=== PATIENT | female | born 1990 ===

== ENCOUNTER 2020-06-23 09:23 | Outpatient (REF) | payer MEDICAID, SELFPAY | END 2020-06-23 09:24 | disposition home or self-care (01) | LOC: HO.LAB 09:23 | PROVIDERS: PCP Internal Medicine; Visit Provider Internal Medicine | DX: Z13.89 Encounter for screening for other disorder (principal) ==

== ENCOUNTER 2021-03-27 05:45 | Inpatient (IN) | payer MEDICAID, SELFPAY ==
[2021-03-27] VITALS (8 sets, daily range): BP systolic 100–114; BP diastolic 50–72; PULSE 60–81; RESP 14–18; TEMP 36.3–37.1; O2SAT 95–100; BMI 43.4
--- NOTE | ~2021-03-27 | US_ITS ---
EXAMINATION: US ABDOMEN LIMITED CLINICAL INFORMATION: Right upper quadrant pain. COMPARISON: None TECHNIQUE: Real-time imaging of the right upper quadrant abdominal viscera. FINDINGS: PANCREAS: Normal. LIVER: The liver is normal in size. The liver contour is normal. Parenchymal echogenicity is increased. No focal hepatic lesion. There is no intrahepatic biliary duct dilatation seen. GALLBLADDER: The gallbladder is upper normal in size. There are gallstones. Gallbladder wall is normal-appearing. There is no pericholecystic fluid. The cath lab technologist reports the patient is tender over the gallbladder. COMMON BILE DUCT: Normal in caliber measuring 0.5 cm in diameter. RIGHT KIDNEY: Normal. No hydronephrosis. No renal calculi or focal parenchymal lesions. The kidney measures 12.3 cm in maximum dimension. FREE FLUID: None. US/US abdomen limited IMPRESSION: Upper normal-size gallbladder and gallstones. Echogenic liver probably representing fatty infiltration.
[2021-03-27 06:11] LABS: Basophils Percent Auto 0.3 % (0-2); Eosinophils Absolute Auto 0.3 X10*3/uL (0.0-0.4); Eosinophils Percent Auto 2.1 % (0-4); Hematocrit 35.9 % (37-47); Hemoglobin 12.2 g/dl (12.0-16.0); Imm Gran Abs Auto 0.05 X10*3/uL (0.00-0.03); Imm Gran Pct Auto 0.4 % (0.0-0.4); Lymphocytes Percent Auto 14.9 % (20-40); MANUAL DIFF FLAG NO; Mean Corpuscular Hemoglobin 29.3 pg (27.0-33.0); Mean Corpuscular Volume 86.1 fL (80-98); Mean Platelet Volume 10.2 fL (9.4-12.3); Monocytes Absolute Auto 0.7 X10*3/uL (0.1-1.2); Monocytes Percent Auto 4.9 % (2-11); Neutrophils Absolute Auto 10.5 X10*3/uL (2.0-8.3); Neutrophils Percent Auto 77.4 % (45-73); Platelet Count 275 X10*3/uL (160-400); Red Blood Count 4.17 X10*6/uL (4.20-5.50); Red Cell Distribution Width 13.2 % (11.0-16.0); White Blood Count 13.6 X10*3/uL (4.8-10.8)
--- NOTE | 2021-03-27 06:38 | ED_ITS ---
HPI - Abdominal Pain General Chief Complaint: Abdominal Pain Stated Complaint: EPIGASTRIC PAIN/N/V Time Seen by Provider: 03/27/21 06:38 Source: patient Mode of arrival: ambulatory Limitations: no limitations History of Present Illness MD elicited complaint: abdominal pain Pertinent past history: none Onset (ago): hour(s) (last several ) Pain Consistency: constant Location: epigastric and RUQ Severity: severe Quality: stabbing Radiation: none Migration to: no migration Exacerbating factors: eating Relieving factors: nothing Context: history of similar episodes Associated symptoms: nausea Related Data Allergies Allergy/AdvReac Type Severity Reaction Status Date / Time No Known Allergies Allergy Verified 03/27/21 05:57 [No Known Allergies*] Review of Systems Review of Systems Constitutional : No Weight loss, No Fever, No Chills ENT/Mouth : No sore throat, No Rhinorrhea Eyes: No Swelling, No Redness Cardiovascular : No Chest Pain, No SOB, NoEdema Respiratory : No Cough, No Sputum, No Wheezing Gastrointestinal : Positive Nausea, Positive Vomiting, no Diarrhea, positive abdominal Pain, No Hematochezia, No Melena Genitourinary : No Dysuria, No Urinary Frequency, No Hematuria, No Urgency Musculoskeletal : No joint pain, No Myalgias, No Joint Swelling Skin : No Skin Lesions, No rash Neuro : No Weakness, No Numbness, No Dizziness, No Headache Psych : No Anxiety/Panic, No Depression Heme/Lymph: No Bruising, No Lymphadenopathy Endocrine : No Polyuria, No Polydipsia All other systems reviewed and are negative. Physical Exam Vital Signs: Vital Signs: Last Vital Signs Temp 97.9 F 03/27/21 10:03 Pulse 61 03/27/21 10:03 Resp 15 03/27/21 10:03 BP 102/55 L 03/27/21 10:03 Pulse Ox 98 03/27/21 10:03 Body Mass Index 43.4 Appearance: Alert. Oriented X3. No acute distress. Eyes: Pupils equal, round and reactive to light. ENT: Pharynx normal. Neck: Normal inspection. Neck supple. CVS: Normal heart rate and rhythm. Pulses normal. Respiratory: No respiratory distress. Breath sounds normal. Abdomen: Soft and moderate epigastric and RUQ ttp + mackenzie's Skin: Skin warm and dry. Normal skin color. Normal skin turgor. Extremities: No lower extremity edema. No calf ttp Neuro: Oriented X 3. No motor deficit. No sensory deficit. Course Course Course Narrative: stones will repeat LFTs given LFTs will notify and discuss with surgery at this time possible infection suspsected, will add on antibiotics [id number] MDM - Abdominal Pain MDM Narrative Medical decision making narrative: 30 yo female with n /v and upper abdominal pain + mackenzei's at this time will need labs, IVF, IV morphine for pain, US to evaluate GB dispo per results and findings. Differential Diagnosis Differential diagnosis: Likely abdominal pain, gastroenteritis, gastritis, pancreatitis and peptic ulcer disease; Unlikely acute appendicitis, calculus of kidney or diverticulitis Lab Data Result diagrams: 03/27/21 06:05 03/27/21 06:05 Labs: Lab Results 03/27/21 03/27/21 03/27/21 Range/Units 06:05 06:05 07:03 WBC 13.6 H (4.8-10.8) X10*3/uL RBC 4.17 L (4.20-5.50) X10*6/uL Hgb 12.2 (12.0-16.0) g/dl Hct 35.9 L (37-47) % MCV 86.1 (80-98) fL MCH 29.3 (27.0-33.0) pg MCHC 34.0 (31.0-35.0) g/dl RDW 13.2 (11.0-16.0) % Plt Count 275 (160-400) X10*3/uL MPV 10.2 (9.4-12.3) fL Immature Gran % (Auto) 0.4 (0.0-0.4) % Neut % (Auto) 77.4 H (45-73) % Lymph % (Auto) 14.9 L (20-40) % [place] % (Auto) 4.9 (2-11) % Eos % (Auto) 2.1 (0-4) % Baso % (Auto) 0.3 (0-2) % Lymph # (Auto) 2.0 (1.2-4.9) X10*3/uL [place] # (Auto) 0.7 (0.1-1.2) X10*3/uL Eos # (Auto) 0.3 (0.0-0.4) X10*3/uL Baso # (Auto) 0.0 (0.0-0.2) X10*3/uL Abs Immat Gran (auto) 0.05 H (0.00-0.03) X10*3/uL Absolute Neuts (auto) 10.5 H (2.0-8.3) X10*3/uL Absolute Nucleated RBC 0.000 (0.0-0.012) X10*3/uL Nucleated RBC % (auto) 0.0 (0.0-0.2) /100WBC Sodium 137 (135-145) mmol/L Potassium 4.2 (3.3-5.1) mmol/L Chloride 106 (96-108) mmol/L Carbon Dioxide 23 (22-29) mmol/L Anion Gap 12 (12-20) BUN 12 (9-16) mg/dL Creatinine 0.61 (0.5-1.4) mg/dL Estim Creat Clear Calc 158.8 Estimated GFR > 60 Random Glucose 110 (60-115) mg/dL Calcium 9.1 (8.4-10.2) mg/dL Total Bilirubin 1.0 (0.0-1.0) mg/dL Direct Bilirubin 0.5 (0.0-0.5) mg/dL AST 128 H (5-31) U/L ALT 77 H (0-31) U/L Alkaline Phosphatase 95 (39-117) U/L Total Protein 7.1 (6.5-8.0) g/dL Albumin 4.0 (3.5-5.0) g/dL Lipase 39 (8-78) U/L Urine Color YELLOW Urine Appearance HAZY Urine pH 7.5 (5.0-8.0) Ur Specific [place] 1.020 (1.005-1.025) Urine Protein NEG (NEG-TRACE) MG/DL Urine Glucose (UA) NEG (NEG) MG/DL Urine Ketones NEG (NEG) MG/DL Urine Blood TRACE (NEG) Urine Nitrite NEG (NEG) Ur Leukocyte Esterase 1+ H (NEG) Urine RBC 0-2 (0) /HPF Urine WBC 1-4 (0-4) /HPF Ur Squamous Epith Cells 3+ /LPF Amorphous Sediment TRACE /LPF Urine Bacteria TRACE /LPF Urine Test (NEGATIVE) COVID-19 ([facility]) (Negative) COVID-19 Clin Com 03/27/21 03/27/21 03/27/21 Range/Units 07:03 07:03 09:14 WBC (4.8-10.8) X10*3/uL RBC (4.20-5.50) X10*6/uL Hgb (12.0-16.0) g/dl Hct (37-47) % MCV (80-98) fL MCH (27.0-33.0) pg MCHC (31.0-35.0) g/dl RDW (11.0-16.0) % Plt Count (160-400) X10*3/uL MPV (9.4-12.3) fL Immature Gran % (Auto) (0.0-0.4) % Neut % (Auto) (45-73) % Lymph % (Auto) (20-40) % [place] % (Auto) (2-11) % Eos % (Auto) (0-4) % Baso % (Auto) (0-2) % Lymph # (Auto) (1.2-4.9) X10*3/uL [place] # (Auto) (0.1-1.2) X10*3/uL Eos # (Auto) (0.0-0.4) X10*3/uL Baso # (Auto) (0.0-0.2) X10*3/uL Abs Immat Gran (auto) (0.00-0.03) X10*3/uL Absolute Neuts (auto) (2.0-8.3) X10*3/uL Absolute Nucleated RBC (0.0-0.012) X10*3/uL Nucleated RBC % (auto) (0.0-0.2) /100WBC Sodium (135-145) mmol/L Potassium (3.3-5.1) mmol/L Chloride (96-108) mmol/L Carbon Dioxide (22-29) mmol/L Anion Gap (12-20) BUN (9-16) mg/dL Creatinine (0.5-1.4) mg/dL Estim Creat Clear Calc Estimated GFR Random Glucose (60-115) mg/dL Calcium (8.4-10.2) mg/dL Total Bilirubin 1.4 H (0.0-1.0) mg/dL Direct Bilirubin 0.8 H (0.0-0.5) mg/dL AST 208 H (5-31) U/L ALT 137 H (0-31) U/L Alkaline Phosphatase 102 (39-117) U/L Total Protein 6.7 (6.5-8.0) g/dL Albumin 3.9 (3.5-5.0) g/dL Lipase (8-78) U/L Urine Color Urine Appearance Urine pH (5.0-8.0) Ur Specific [place] (1.005-1.025) Urine Protein (NEG-TRACE) MG/DL Urine Glucose (UA) (NEG) MG/DL Urine Ketones (NEG) MG/DL Urine Blood (NEG) Urine Nitrite (NEG) Ur Leukocyte Esterase (NEG) Urine RBC (0) /HPF Urine WBC (0-4) /HPF Ur Squamous Epith Cells /LPF Amorphous Sediment /LPF Urine Bacteria /LPF Urine Test NEGATIVE (NEGATIVE) COVID-19 ([facility]) Negative (Negative) COVID-19 Clin Com See Note Discharge Plan Discharge Clinical Impression: Elevated LFTs, Biliary colic Patient Disposition: Admitted As Inpatient [facility] Past Medical History Attestation statement: The following information was validated with the patient. Medical History (Updated 03/27/21 @ 10:11 by Lulú Kaye DO) Asthma Social History Social History (Updated 03/27/21 @ 07:20 by Lulú Kaye DO) Patient Tobacco Use Status: Never used Tobacco Use of substances other than those prescribed or required for medical reasons: No Advance Directives: No Patient : No
[2021-03-27 06:45] LABS: Alanine Aminotransferase 77 U/L (0-31); Alkaline Phosphatase 95 U/L (39-117); Anion Gap 12 (12-20); Aspartate Amino Transferase 128 U/L (5-31); Bilirubin Direct 0.5 mg/dL (0.0-0.5); Blood Urea Nitrogen 12 mg/dL (9-16); Calcium 9.1 mg/dL (8.4-10.2); Carbon Dioxide 23 mmol/L (22-29); Chloride 106 mmol/L (96-108); Creatinine Clr Calc Pharmacy 158.8; Estimated Glomerular Filt Rate > 60; Glucose Random 110 mg/dL (60-115); Lipase 39 U/L (8-78); Potassium 4.2 mmol/L (3.3-5.1); Sodium 137 mmol/L (135-145); Total Protein 7.1 g/dL (6.5-8.0)
[2021-03-27] MEDS: Ketorolac Tromethamine 15 MG/ML VIAL IVPUSH (07:05)
[2021-03-27] MEDS: Morphine Sulfate 4 MG/ML CARTRIDGE IVPUSH (07:05)
[2021-03-27] MEDS: 0.9 % Sodium Chloride 1,000 ML 999 ML IVCONT (07:05)
[2021-03-27] MEDS: ondansetron HCL 4 MG/2 ML VIAL IVPUSH ×2 (07:05→17:58)
[2021-03-27 07:10] LABS: Appearance Urine HAZY; Color Urine YELLOW; Glucose Urine UA NEG (NEG); Leukocyte Esterase Urine 1+ (NEG); Nitrite Urine NEG (NEG); PH 7.5 (5.0-8.0); UACC Culture Trigger YES; Urine Blood TRACE (NEG); Urine Ketones NEG (NEG); Urine Protein NEG (NEG-TRACE)
[2021-03-27 07:12] LABS: UPreg QC Valid YES; Urine Pregnancy NEGATIVE (NEGATIVE)
[2021-03-27 07:20] LABS: Amorphous Sediment Urine TRACE /LPF; Bacteria Urine TRACE /LPF; RBC Urine 0-2 /HPF (0); Squamous Epithelial Cell Urine 3+ /LPF
[2021-03-27 07:22] LABS: COVID-19 Test Negative (Negative)
[2021-03-27 10:08] LABS: Alanine Aminotransferase 137 U/L (0-31); Albumin Level 3.9 g/dL (3.5-5.0); Alkaline Phosphatase 102 U/L (39-117); Aspartate Amino Transferase 208 U/L (5-31); Bilirubin Direct 0.8 mg/dL (0.0-0.5); Bilirubin Total 1.4 mg/dL (0.0-1.0); Total Protein 6.7 g/dL (6.5-8.0)
--- NOTE | 2021-03-27 10:32 | P.HPGS_ITS ---
History of Present Illness History of Present Illness Date of Service: 03/27/21 Chief complaint: EPIGASTRIC PAIN/N/V Narrative: Sierra Boyce is a 30 year old female presenting with complaints of abdominal pain in the right upper quadrant beginning at 00:30 today. She reports a previous episode approximately 2 weeks ago occurring in the epigastrium radiating to the right upper quadrant. The initial episode occurred after eating [employer]. She initially thought it was due to her GERD however symptoms today were much worse resulting in nausea and vomiting. She denies a previous history of similar pains prior to the last 2 weeks. She denies fever, chills, diarrhea, or constipation. She presented to the emergency department was found to have elevated liver function tests. Ultrasound of the abdomen confirmed multiple gallstones within the gallbladder without wall thickening or pericholecystic fluid. She is admitted to the surgical service for management of acute cholecystitis due to cholelithiasis. Review of Systems Review of Systems: Yes all other systems are reviewed and are negative Constitutional: Constitutional: Reports anorexia, Denies chills, Denies fever(s) and Denies night sweats Cardiovascular: Cardiovascular: Denies chest pain, Reports Epigastric Pain, Denies rapid heart rate, Denies irregular heart rhythm and Denies dyspnea Respiratory: Respiratory: Denies change in phlegm color, Denies chest congestion, Denies cough and Denies dyspnea Gastrointestinal: Gastrointestinal: Reports as per HPI, Reports abdominal pain, Denies diarrhea, Reports nausea and Reports vomiting Genitourinary: Genitourinary: Reports no additional female genitourinary complaints PMFSH Past Medical History Medical History Asthma Social History Social History Patient Tobacco Use Status: Never used Tobacco Use of substances other than those prescribed or required for medical reasons: No Advance Directives: No Patient : No Meds Allergies Allergy/AdvReac Type Severity Reaction Status Date / Time No Known Allergies Allergy Verified 03/27/21 05:57 [No Known Allergies*] Active Medications: Current Medications Generic Name Dose Route Start Last Admin Trade Name Freq PRN Reason Stop Dose Admin Piperacillin Sod/Tazobactam 50 mls @ 100 mls/hr 03/27/21 10:14 Sod 3.375 gm/ Sodium Chloride IV 03/27/21 10:43 ONCE ONE Piperacillin Sod/Tazobactam 50 mls @ 100 mls/hr 03/27/21 10:30 Sod 3.375 gm/ Sodium Chloride IV Q6H [facility] Pharmacy Consult 1 each 03/27/21 10:15 Consult Rx Perform Med Rec MISCELLANE ONCE PRN Consult order Physical Exam Vital Signs: Vital Signs: Last Vital Signs Temp 97.9 F 03/27/21 10:03 Pulse 61 03/27/21 10:03 Resp 15 03/27/21 10:03 BP 102/55 L 03/27/21 10:03 Pulse Ox 98 03/27/21 10:03 Body Mass Index 43.4 Const: General: cooperative and well developed Nutritional Appearance: well nourished Orientation/consciousness: patient oriented x3 Limitations: no limitations HENMT: Head: Yes normocephalic and Yes atraumatic Ears: hearing grossly normal bilaterally Resp: Effort & Inspection: normal respiratory effort and no audible wheezes Auscultation: clear to auscultation bilaterally GI: Inspection: Yes normal to inspection Palpation (GI): Soft to palpation and Tenderness to palpation present (GI) in the RUQ and Kimble's sign positive Percussion: Yes normal to percussion Auscultation: normal bowel sounds Skin: General skin exam: no rashes or lesions noted Neuro: General: patient oriented x3 Extrem: General: Yes normal to inspection and Yes no clubbing, cyanosis or edema Results Results Labs: Short CBC 03/27/21 Range/Units 06:05 WBC 13.6 H (4.8-10.8) X10*3/uL Hgb 12.2 (12.0-16.0) g/dl Hct 35.9 L (37-47) % Plt Count 275 (160-400) X10*3/uL BMP 03/27/21 06:05 Sodium 137 Potassium 4.2 Chloride 106 Carbon Dioxide 23 BUN 12 Creatinine 0.61 Calcium 9.1 Liver Function 03/27/21 03/27/21 Range/Units 06:05 09:14 Total Bilirubin 1.0 1.4 H (0.0-1.0) mg/dL Direct Bilirubin 0.5 0.8 H (0.0-0.5) mg/dL AST 128 H 208 H (5-31) U/L ALT 77 H 137 H (0-31) U/L Alkaline Phosphatase 95 102 (39-117) U/L Albumin 4.0 3.9 (3.5-5.0) g/dL Urine 03/27/21 03/27/21 Range/Units 07:03 07:03 Urine Color YELLOW Urine Appearance HAZY Urine pH 7.5 (5.0-8.0) Ur Specific [place] 1.020 (1.005-1.025) Urine Protein NEG (NEG-TRACE) MG/DL Urine Glucose (UA) NEG (NEG) MG/DL Urine Test NEGATIVE (NEGATIVE) Assessment and Plan (1) Biliary colic: Status: Acute 30-year-old female patient presenting with complaints of abdominal pain in the right upper quadrant found to have gallstones in the gallbladder with findings suggestive of acute cholecystitis or biliary colic. Patient also has an elevated WBC and elevated liver function test. I recommended admission with trending of the liver function tests and possible laparoscopic cholecystectomy tomorrow. I reviewed the procedure, risks, and alternatives, she consents to the surgery. Quality Stroke Does the patient have a stroke diagnosis?: No VTE Prior VTE?: No VTE Risk Level:: Surgical - moderate VTE Device Contraindication: N/A - Device Ordered VTE Drug Contraindication: Treatment Not Indicated Procedures Date of Service Date of Service: 03/27/21
[2021-03-27] MEDS: Piperacillin Sodium/Tazobactam 3.375 GM in 0.9 % Sodium Chloride 50 ML IV ×3 (10:54→22:38)
[2021-03-27 11:10] LABS: Lactic Acid 1.8 mmol/L (0.5-2.0)
--- NOTE | 2021-03-27 11:55 | PHA.MEDREC ---
Pharmacy Consult ? Medication Reconciliation Pharmacy has completed the medication reconciliation.
[2021-03-27] MEDS: Dextrose 5 % and Lactated Ring 1,000 ML 125 ML IVCONT ×2 (13:53→22:43)
[2021-03-28] VITALS (21 sets, daily range): BP systolic 97–136; BP diastolic 45–76; PULSE 65–91; RESP 14–20; TEMP 36.1–37.2; O2SAT 93–100
[2021-03-28] MEDS: Piperacillin Sodium/Tazobactam 3.375 GM in 0.9 % Sodium Chloride 50 ML IV ×3 (04:19→23:28)
[2021-03-28 06:42] LABS: MANUAL DIFF FLAG NO
[2021-03-28 06:49] LABS: Basophils Percent Auto 0.3 % (0-2); Eosinophils Absolute Auto 0.5 X10*3/uL (0.0-0.4); Eosinophils Percent Auto 5.1 % (0-4); Hematocrit 34.2 % (37-47); Imm Gran Abs Auto 0.03 X10*3/uL (0.00-0.03); Imm Gran Pct Auto 0.3 % (0.0-0.4); Lymphocytes Absolute Auto 2.1 X10*3/uL (1.2-4.9); Lymphocytes Percent Auto 22.2 % (20-40); Mean Corpuscular HGB Conc 32.2 g/dl (31.0-35.0); Mean Corpuscular Hemoglobin 28.5 pg (27.0-33.0); Mean Corpuscular Volume 88.6 fL (80-98); Monocytes Absolute Auto 0.7 X10*3/uL (0.1-1.2); Monocytes Percent Auto 7.1 % (2-11); Neutrophils Absolute Auto 6.2 X10*3/uL (2.0-8.3); Platelet Count 240 X10*3/uL (160-400); Red Blood Count 3.86 X10*6/uL (4.20-5.50); Red Cell Distribution Width 13.5 % (11.0-16.0); White Blood Count 9.5 X10*3/uL (4.8-10.8)
[2021-03-28 07:21] LABS: Alanine Aminotransferase 125 U/L (0-31); Albumin Level 3.5 g/dL (3.5-5.0); Alkaline Phosphatase 95 U/L (39-117); Anion Gap 10 (12-20); Aspartate Amino Transferase 66 U/L (5-31); Bilirubin Direct 0.4 mg/dL (0.0-0.5); Bilirubin Total 0.9 mg/dL (0.0-1.0); Blood Urea Nitrogen 9 mg/dL (9-16); Calcium 8.2 mg/dL (8.4-10.2); Carbon Dioxide 27 mmol/L (22-29); Chloride 109 mmol/L (96-108); Estimated Glomerular Filt Rate > 60; Glucose Random 113 mg/dL (60-115); Potassium 3.7 mmol/L (3.3-5.1); Sodium 142 mmol/L (135-145); Total Protein 5.9 g/dL (6.5-8.0)
--- NOTE | 2021-03-28 08:08 | P.PNGS_ITS ---
Subjective Subjective Date of Service: 03/28/21 Interval history: Patient feels improved today with decreased abdominal pain. Denies nausea or vomiting. Physical Exam Vital Signs: Vital Signs: Last Vital Signs Temp 97.9 F 03/28/21 07:39 Pulse 83 03/28/21 07:39 Resp 17 03/28/21 07:39 BP 117/70 03/28/21 07:39 Pulse Ox 97 03/28/21 07:39 Body Mass Index 43.4 Const: General: cooperative, no acute distress and well developed Nutritional Appearance: well nourished Orientation/consciousness: patient oriented x3 Limitations: no limitations HENMT: Head: Yes normocephalic and Yes atraumatic Resp: Effort & Inspection: normal respiratory effort Auscultation: clear to auscultation bilaterally Cardio: Jugular venous distension: no JVD Rate: regular rate Rhythm: regular rhythm GI: Palpation (GI): Soft to palpation, nontender, no guarding, not rigid and No hepatosplenomegaly present Skin: Other: Warm, dry, no rash Neuro: General: patient oriented x3 Extrem: General: Yes no clubbing, cyanosis or edema Procedures Date of Service Date of Service: 03/28/21 Progress Note: A&P Assessment and plan (1) Cholecystitis, acute with cholelithiasis: Status: Acute Assessment and Plan: 30-year-old female presenting with complaints of abdominal pain right upper quadrant found to have gallstones with tenderness over the gallbladder by ultrasound. Examination today is improved with decreased abdominal pain. Her laboratories are improved as well. We discussed laparoscopic or possible open cholecystectomy including the risks, alternatives, and benefits. She gives her consent to a laparoscopic or possible open cholecystectomy. She has been added onto the operative schedule for later today. Preoperative antibiotics have been ordered. Fall Risk Details Current Medications: Current Medications Generic Name Dose Route Start Last Admin Trade Name Freq PRN Reason Stop Dose Admin Acetaminophen 650 mg 03/27/21 13:32 Acetaminophen 325 Mg Tablet PO Q6H PRN Pain, Mild (Pain Scale 1-3) Docusate Sodium 100 mg 03/27/21 13:32 Docusate Sodium 100 Mg Capsule PO DAILY PRN Constipation Famotidine 20 mg 03/28/21 09:00 Famotidine/Pf 20 Mg/2 Ml Vial IVPUSH DAILY EFFIE Hydromorphone HCl 0.5 mg 03/27/21 13:32 Hydromorphone Hcl 0.5 Mg/0.5 Ml Syringe IVPUSH Q3H PRN Pain, Severe (Pain Scale 7-10) Protocol Piperacillin Sod/Tazobactam 50 mls @ 100 mls/hr 03/27/21 10:30 03/28/21 04:58 Sod 3.375 gm/ Sodium Chloride IV Infused Q6H EFFIE Infusion Dextrose/Lactated Ringer's 1,000 mls @ 125 mls/hr 03/27/21 13:32 03/28/21 06:42 D5lr IVCONT Not Given .Q8H EFFIE Ondansetron HCl 4 mg 03/27/21 13:32 03/27/21 17:58 Ondansetron Hcl 4 Mg/2 Ml Vial IVPUSH 4 mg Q8H PRN Administration Nausea and Vomiting Oxycodone HCl 5 mg 03/27/21 13:32 Oxycodone Hcl Immed Release 5 Mg Tablet PO Q6H PRN Pain, Moderate (Pain Scale 4-6 Pharmacy Consult 1 each 03/27/21 10:15 Consult Rx Perform Med Rec MISCELLANE ONCE PRN Consult order Sodium Chloride 3 ml 03/27/21 16:00 03/28/21 00:17 0.9 % Sodium Chloride Flush 3 Ml Syringe IVFLUSH Not Given QSHIFT EFFIE Zolpidem Tartrate 5 mg 03/27/21 13:32 Zolpidem Tartrate 5 Mg Tablet PO BEDTIME PRN Insomnia Time Spent With Patient Time: Total time spent is greater than 50% in coordination of care (as docum ented) at patient's floor/unit and/or counseling patient: Time with patient: 15 - 24 minutes Quality Stroke Does the patient have a stroke diagnosis?: No VTE Prior VTE?: No VTE Risk Level:: Surgical - moderate VTE Device Contraindication: N/A - Device Ordered VTE Drug Contraindication: Treatment Not Indicated
[2021-03-28] MEDS: Dextrose 5 % and Lactated Ring 1,000 ML 125 ML IVCONT ×2 (08:22→18:10)
[2021-03-28] MEDS: Famotidine/PF 20 MG/2 ML VIAL IVPUSH (10:23)
--- NOTE | 2021-03-28 11:33 | PC.NURSE ---
Patient taken to short stay.
--- NOTE | 2021-03-28 11:36 | MHC.SHP ---
Pre-Procedural Eval Section A Date of Service: 03/28/21 The patient is an INPATIENT: Yes Section B Chief Complaint: Acute cholecystitis cholelithiasis Allergies: Allergies Allergy/AdvReac Type Severity Reaction Status Date / Time No Known Allergies Allergy Verified 03/27/21 05:57 [No Known Allergies*] Plan Diagnosis/Plan: Unchanged I have reviewed the history and physical and performed a pertinent physical examination on my patient. No changes have occurred unless specified.
--- NOTE | 2021-03-28 13:05 | P.CONAN_ITS ---
FORMERLY [facility], 1928–1983 Active Problems Active Problems: All Active Problems (Updated 03/28/21 @ 08:10 by Kirk cast MD) Cholecystitis, acute with cholelithiasis (Acute) Elevated LFTs (Acute) Biliary colic (Acute) Past Medical History Medical History Asthma Family History Family history of problems with anesthesia: No Surgical History History of Problems with Anesthesia: No Social History Social History Household Members: Family Housing: Apartment Do you presently have visiting nurse or other home services: No Patient Tobacco Use Status: Never used Tobacco Use of substances other than those prescribed or required for medical reasons: Yes Substance Use Type: Marijuana Currently Displaying Signs/Symptoms of Drug Intoxication Withdrawal: No Have you been hit, kicked, punched, or otherwise hurt by someone within the past year? If so, by whom?: No Do you feel safe in your current relationship?: Yes Is there a partner from a previous relationship who is making you feel unsafe now?: No Are you made to feel afraid or neglected: No Are you DNR?: No Advance Directives: No Do you have thoughts of harming others: None Do you have a plan to hurt others: No Plan Recently lost weight without trying: No Nutrition Risks: No Nutritional Risk Patient : No : No Poor oral hygiene: No Meds Allergies Allergy/AdvReac Type Severity Reaction Status Date / Time No Known Allergies Allergy Verified 03/27/21 05:57 [No Known Allergies*] Active Medications: Current Medications Generic Name Dose Route Start Last Admin Trade Name Goodq PRN Reason Stop Dose Admin Acetaminophen 650 mg 03/27/21 13:32 Acetaminophen 325 Mg Tablet PO Q6H PRN Pain, Mild (Pain Scale 1-3) Docusate Sodium 100 mg 03/27/21 13:32 Docusate Sodium 100 Mg Capsule PO DAILY PRN Constipation Famotidine 20 mg 03/28/21 09:00 03/28/21 10:23 Famotidine/Pf 20 Mg/2 Ml Vial IVPUSH 20 mg DAILY EFFIE Administration Hydromorphone HCl 0.5 mg 03/27/21 13:32 Hydromorphone Hcl 0.5 Mg/0.5 Ml Syringe IVPUSH Q3H PRN Pain, Severe (Pain Scale 7-10) Protocol Piperacillin Sod/Tazobactam 50 mls @ 100 mls/hr 03/27/21 10:30 03/28/21 04:58 Sod 3.375 gm/ Sodium Chloride IV Infused Q6H EFFIE Infusion Dextrose/Lactated Ringer's 1,000 mls @ 125 mls/hr 03/27/21 13:32 03/28/21 08:22 D5lr IVCONT 125 mls/hr .Q8H EFFIE Administration Ondansetron HCl 4 mg 03/27/21 13:32 03/27/21 17:58 Ondansetron Hcl 4 Mg/2 Ml Vial IVPUSH 4 mg Q8H PRN Administration Nausea and Vomiting Oxycodone HCl 5 mg 03/27/21 13:32 Oxycodone Hcl Immed Release 5 Mg Tablet PO Q6H PRN Pain, Moderate (Pain Scale 4-6 Pharmacy Consult 1 each 03/27/21 10:15 Consult Rx Perform Med Rec MISCELLANE ONCE PRN Consult order Sodium Chloride 3 ml 03/27/21 16:00 03/28/21 08:21 0.9 % Sodium Chloride Flush 3 Ml Syringe IVFLUSH Not Given QSHIFT EFFIE Zolpidem Tartrate 5 mg 03/27/21 13:32 Zolpidem Tartrate 5 Mg Tablet PO BEDTIME PRN Insomnia Home Medications Medication Instructions Recorded Confirmed Last Taken Type albuterol sulfate 90 mcg/actuation 2 puff PO Q4-6H PRN 03/27/21 03/27/21 Unknown History aerosol inhaler (ProAir HFA) calcium carbonate 500 mg calcium 500 mg PO TID PRN 03/27/21 03/27/21 03/26/21 History (1,250 mg) chewable tablet famotidine 20 mg tablet 1 tab PO BID 03/27/21 03/27/21 03/26/21 History fluticasone propionate 110 1 puff INHALATION BID PRN 03/27/21 03/27/21 03/26/21 History mcg/actuation HFA aerosol inhaler (Flovent HFA) melatonin 10 mg tablet 10 mg PO BEDTIME PRN 03/27/21 03/27/21 03/26/21 History Exam Exam Date and Time: March 28, 2021 1305 Height,Weight and Vital Signs: Height 5 ft 3 in Weight 111.316 kg Last Vital Signs Temp 97.1 F 03/28/21 11:44 Pulse 74 03/28/21 11:44 Resp 20 03/28/21 11:44 BP 101/65 03/28/21 11:44 Pulse Ox 98 03/28/21 11:44 Pertinent Lab Results Pertinent Lab Results: Laboratory Tests 03/27/21 03/27/21 03/27/21 06:05 06:05 07:03 WBC 13.6 H RBC 4.17 L Hgb 12.2 Hct 35.9 L MCV 86.1 MCH 29.3 MCHC 34.0 RDW 13.2 Plt Count 275 MPV 10.2 Immature Gran % (Auto) 0.4 Neut % (Auto) 77.4 H Lymph % (Auto) 14.9 L [place] % (Auto) 4.9 Eos % (Auto) 2.1 Baso % (Auto) 0.3 Lymph # (Auto) 2.0 [place] # (Auto) 0.7 Eos # (Auto) 0.3 Baso # (Auto) 0.0 Abs Immat Gran (auto) 0.05 H Absolute Neuts (auto) 10.5 H Absolute Nucleated RBC 0.000 Nucleated RBC % (auto) 0.0 Sodium 137 Potassium 4.2 Chloride 106 Carbon Dioxide 23 Anion Gap 12 BUN 12 Creatinine 0.61 Estim Creat Clear Calc 158.8 Estimated GFR > 60 Random Glucose 110 Lactic Acid Calcium 9.1 Total Bilirubin 1.0 Direct Bilirubin 0.5 AST 128 H ALT 77 H Alkaline Phosphatase 95 Total Protein 7.1 Albumin 4.0 Lipase 39 Urine Color YELLOW Urine Appearance HAZY Urine pH 7.5 Ur Specific [place] 1.020 Urine Protein NEG Urine Glucose (UA) NEG Urine Ketones NEG Urine Blood TRACE Urine Nitrite NEG Ur Leukocyte Esterase 1+ H Urine RBC 0-2 Urine WBC 1-4 Ur Squamous Epith Cells 3+ Amorphous Sediment TRACE Urine Bacteria TRACE Urine Test COVID-19 ([facility]) COVID-19 Clin Com 03/27/21 03/27/21 03/27/21 07:03 07:03 09:14 WBC RBC Hgb Hct MCV MCH MCHC RDW Plt Count MPV Immature Gran % (Auto) Neut % (Auto) Lymph % (Auto) [place] % (Auto) Eos % (Auto) Baso % (Auto) Lymph # (Auto) [place] # (Auto) Eos # (Auto) Baso # (Auto) Abs Immat Gran (auto) Absolute Neuts (auto) Absolute Nucleated RBC Nucleated RBC % (auto) Sodium Potassium Chloride Carbon Dioxide Anion Gap BUN Creatinine Estim Creat Clear Calc Estimated GFR Random Glucose Lactic Acid Calcium Total Bilirubin 1.4 H Direct Bilirubin 0.8 H AST 208 H ALT 137 H Alkaline Phosphatase 102 Total Protein 6.7 Albumin 3.9 Lipase Urine Color Urine Appearance Urine pH Ur Specific [place] Urine Protein Urine Glucose (UA) Urine Ketones Urine Blood Urine Nitrite Ur Leukocyte Esterase Urine RBC Urine WBC Ur Squamous Epith Cells Amorphous Sediment Urine Bacteria Urine Test NEGATIVE COVID-19 ([facility]) Negative COVID-19 Clin Com See Note 03/27/21 03/28/21 03/28/21 10:39 06:31 06:31 WBC 9.5 RBC 3.86 L Hgb 11.0 L Hct 34.2 L MCV 88.6 MCH 28.5 MCHC 32.2 RDW 13.5 Plt Count 240 MPV 10.0 Immature Gran % (Auto) 0.3 Neut % (Auto) 65.0 Lymph % (Auto) 22.2 [place] % (Auto) 7.1 Eos % (Auto) 5.1 H Baso % (Auto) 0.3 Lymph # (Auto) 2.1 [place] # (Auto) 0.7 Eos # (Auto) 0.5 H Baso # (Auto) 0.0 Abs Immat Gran (auto) 0.03 Absolute Neuts (auto) 6.2 Absolute Nucleated RBC 0.000 Nucleated RBC % (auto) 0.0 Sodium 142 Potassium 3.7 Chloride 109 H Carbon Dioxide 27 Anion Gap 10 L BUN 9 Creatinine 0.65 Estim Creat Clear Calc 149.0 Estimated GFR > 60 Random Glucose 113 Lactic Acid 1.8 Calcium 8.2 L D Total Bilirubin 0.9 Direct Bilirubin 0.4 AST 66 H ALT 125 H Alkaline Phosphatase 95 Total Protein 5.9 L Albumin 3.5 Lipase Urine Color Urine Appearance Urine pH Ur Specific [place] Urine Protein Urine Glucose (UA) Urine Ketones Urine Blood Urine Nitrite Ur Leukocyte Esterase Urine RBC Urine WBC Ur Squamous Epith Cells Amorphous Sediment Urine Bacteria Urine Test COVID-19 ([facility]) COVID-19 Clin Com Airway Mallampati Class: II TM Dist: >3cm Neck ROM: Full Loose/Missing/Broken Teeth: Yes and Upper Assessment and Plan Assessment Anesthesia Assessment: Anesthesia Plan Discussed and Chart Reviewed Final Anesthetic Review Family History of Problems with Anesthesia: No History of Problems with Anesthesia: No NPO: Yes ASA Class: III Final Preanesthetic Review: No Changes in Pt Med Stat, Meds/Allgs Chart Reviewed, Consent Obtained/Reviewed and Anes Risks/Benef Reviewed Patient Risk: Intermediate Procedure Risk: Intermediate Assessment/Block/Sedation in SS: Assess/Block/Sedation-SS Anesthetic Plan Anesthetic Plan: GA Disposition: Standard PACU
--- NOTE | 2021-03-28 14:57 | MHC.CM.PN ---
PT OUR OF ROOM FOR PROCEDURE. CM MET WITH PTS WHO WAS IN ROOM. PT LIVES AT HOME WITH HER S/O AND IS INDEPENDENT WITH ALL ADLS PT DOES NOT USE DME OR HOME SERVICES PT GOES TO [facility] FOR PRIMARY CARE PT DOES NOT HAVE A HCP, INFORMED THAT CM COULD ASSIST. CURRENT DC PLAN IS HOME WITH NO SERVICES FAMILY WILL TRANSPORT
--- NOTE | 2021-03-28 15:01 | P.OP_ITS ---
Operative Note Operative Note Date of Service: 03/28/21 Narrative: Preoperative diagnosis: Cholecystitis due to cholelithiasis, liver edge bleeding Postoperative diagnosis: Same Procedure: Laparoscopic cholecystectomy converted to open laparotomy to control liver edge bleeding Surgeon: Kirk Farfan MD Radio Intelligence Operator: NOHEMI Rodriguez Anesthesia: General endotracheal Indications for procedure: 30-year-old female patient presenting with complaints of abdominal pain in the right upper quadrant found on ultrasound to have an enlarged gallbladder with gallstones and tenderness with palpation of the gallbladder. Patient also had elevated liver function test which improved overnight. She presents today for laparoscopic or possible open cholecystectomy. Operative findings: Patient was found to have a moderately inflamed intrahepatic gallbladder. Upon dissection of the gallbladder at the level of the fundus, an area of bleeding was identified once the gallbladder was removed. Pulsatile flow was noted from this vessel suggestive of an intrahepatic artery. Attempt at clipping were unsuccessful therefore an open laparotomy was required to control liver bleeding. This was controlled using a U-stitch. Specimen: Gallbladder Estimated blood loss: 1000 mL Complications: Bleeding from liver edge as noted above Procedure details: Patient was brought to the OR and placed in a supine position. After administering general anesthesia the patient's abdomen was prepped with ChloraPrep and draped in a sterile fashion. Local anesthesia consisting of 0.5% Sensorcaine plain was infiltrated in a periumbilical region. A 5 mm incision was made above the umbilicus in a transverse fashion. The Veress needle was then inserted while elevating abdominal cavity with towel clips. After positive drop test the abdomen was insufflated to a pressure of 15 mm of mercury. The Veress needle was then removed and a 5 mm trocar inserted. The camera was inserted in the abdomen explored. A 12 mm trocar was then placed in the epigastrium and two 5 mm trocars placed in the right upper quadrant. The patient was placed in reverse Trendelenburg positioning and rotated to the left. The gallbladder was grasped with the fundus and retracted cephalad. The infundibulum was then grasped and retracted away from the liver bed. The Dolphin dissector was then used to dissect the peritoneum off the infundibulum to reveal the junction with the cystic duct. Cystic artery was noted slightly medial and posterior to the cystic duct. After obtaining a critical view the cystic duct was doubly clipped and divided. The cystic artery was then doubly clipped and divided. The gallbladder was then dissected off the liver bed using electrocautery with an L hook. When the gallbladder is completely dissected off the liver bed was placed in an Endo-Catch bag and brought out through the epigastric incision. The gallbladder was sent to pathology for further examination. The abdomen was then re-examined. The liver bed was irrigated and area of bleeding noted from the liver bed in the region of the fundus. Electrocautery was initially used to attempt to control the bleeding however this was not successful. Hemoclips were also attempted but again could not control the bleeding. As noted above the bleeding was noted to be pulsatile suggestive of a intrahepatic artery at the surface. The decision was made to convert to an open procedure via a subcostal incision. A Eric incision was made with a scalpel carried down through subcutaneous tissue with electrocautery. The anterior rectus sheath was then opened with electrocautery and the rectus muscle and oblique muscles divided using electrocautery. Peritoneum was then entered. Liver was then brought into view and packed immediately with a lap pad. This was held for several minutes but continue bleeding was noted from the liver bed. The decision was then made to place a liver stitch in the U fashion through and through the liver bed. This was done using a 0 Polysorb suture and tied off on the upper surface of the liver. Hemostasis was achieved using the suture. Wounds were then packed and observed for approximately 30 minutes. The liver bed was also packed with Surgicel. No further bleeding could be identified at this time. A large flat Damien-Gillespie drain was then placed and brought out through the lateral trocar site. This was secured to the skin using a nylon suture. The tube was connected to bulb suction. The abdomen was again examined and good hemostasis assured. No bile leak could be identified as well. Peritoneum was then closed using a running 0 Polysorb suture. Posterior and anterior rectus sheaths were then closed using 0 Polysorb sutures in a running fashion. Gabbie's fascia and dermis reapproximated using interrupted 3-0 Polysorb sutures. Skin was then closed in all incisions using skin arely. The patient was awoken in the OR and transported to PACU in stable condition. Sponge instrument and needle counts reported as correct.
[2021-03-28] MEDS: HYDROmorphone HCl 0.5 MG/0.5 ML SYRINGE IVPUSH ×2 (15:14→21:08)
[2021-03-28] MEDS: fentaNYL citrate/PF 100 MCG/2 ML VIAL 50 MCG IVPUSH ×2 (15:35→15:45)
[2021-03-28] MEDS: oxyCODONE HCl Immed Release 5 MG TABLET PO ×3 (15:35→23:29)
[2021-03-29] VITALS (11 sets, daily range): BP systolic 96–116; BP diastolic 58–65; PULSE 70–80; RESP 16–18; TEMP 35.9–36.9; O2SAT 95–97
[2021-03-29] MEDS: HYDROmorphone HCl 0.5 MG/0.5 ML SYRINGE IVPUSH ×4 (01:36→10:05)
[2021-03-29] MEDS: Dextrose 5 % and Lactated Ring 1,000 ML 125 ML IVCONT ×3 (02:31→19:47)
[2021-03-29] MEDS: Piperacillin Sodium/Tazobactam 3.375 GM in 0.9 % Sodium Chloride 50 ML IV ×4 (03:42→22:58)
[2021-03-29 06:21] LABS: MANUAL DIFF FLAG NO
[2021-03-29 06:24] LABS: Basophils Percent Auto 0.1 % (0-2); Hematocrit 30.2 % (37-47); Hemoglobin 9.8 g/dl (12.0-16.0); Imm Gran Abs Auto 0.05 X10*3/uL (0.00-0.03); Imm Gran Pct Auto 0.3 % (0.0-0.4); Lymphocytes Absolute Auto 2.2 X10*3/uL (1.2-4.9); Lymphocytes Percent Auto 15.6 % (20-40); Mean Corpuscular HGB Conc 32.5 g/dl (31.0-35.0); Mean Corpuscular Hemoglobin 28.8 pg (27.0-33.0); Mean Corpuscular Volume 88.8 fL (80-98); Mean Platelet Volume 10.4 fL (9.4-12.3); Monocytes Percent Auto 6.7 % (2-11); Neutrophils Absolute Auto 11.1 X10*3/uL (2.0-8.3); Neutrophils Percent Auto 77.3 % (45-73); Platelet Count 240 X10*3/uL (160-400); Red Cell Distribution Width 13.3 % (11.0-16.0); White Blood Count 14.4 X10*3/uL (4.8-10.8)
[2021-03-29 06:51] LABS: Anion Gap 9 (12-20); Blood Urea Nitrogen 5 mg/dL (9-16); Calcium 7.9 mg/dL (8.4-10.2); Carbon Dioxide 26 mmol/L (22-29); Chloride 107 mmol/L (96-108); Creatinine Clr Calc Pharmacy 161.4; Estimated Glomerular Filt Rate > 60; Glucose Random 130 mg/dL (60-115); Sodium 138 mmol/L (135-145)
--- NOTE | 2021-03-29 06:51 | HO.POSTANES ---
Post Anesthesia Evaluation Post Anesthesia Evaluation Vital Signs: Vital Signs Temp Pulse Resp BP Pulse Ox 03/29/21 04:00 96.9 F 76 16 96/64 95 03/29/21 01:36 16 03/29/21 01:35 80 16 116/63 03/29/21 01:24 104/58 L 03/29/21 00:00 97.0 F 78 17 97 03/28/21 21:08 16 03/28/21 21:07 74 16 108/57 L 03/28/21 20:00 98.5 F 76 14 97/55 L 94 Anesthesia: General Endotracheal-GETA Mental Status: Awake Pain Control: Satisfactory Nausea/Vomiting: None Hydration: Adequate Anesthesia-Related Issues: No Anes. Related Issues
[2021-03-29] MEDS: Famotidine/PF 20 MG/2 ML VIAL IVPUSH (07:42)
--- NOTE | 2021-03-29 07:44 | P.CDIC_ITS ---
CDI Concurrent Query Documentation Clarification: PHYSICIAN'S DOCUMENTATION REQUEST Date of Query: 03/29/21 0745 Patient Name: Sierra Boyce Admit Date: 03/27/21 Dear Doctor, A review of the medical record indicates additional documentation may be needed. Please review below and update the documentation accordingly. Clinical Indicators: Risk Factors/Clinical Indicators/Treatments OR 03/28/21: procedure: Lap cholecystectomy converted to open laparotomy to control liver edge bleeding H/H on admit: 12.2/35.9 H/H on 03/29/21: 9.8/30.2 Per Operative note: EBL 1000 ml Based on the above, could you clarify in the Progress Notes which of the following is the most likely type of anemia you are evaluating, treating, and/or monitoring? * Acute blood loss anemia * Other ? please specify * Unable to determine Use of terms such as suspected, likely, concern for, or probable (associated with a specific diagnosis that is being evaluated, monitored, or treated as if it exists) are acceptable and can be coded in the inpatient setting, when documented at the time of discharge. Thank you, Krystal Flores RN Extension: [phone] Please use your independent medical judgment in providing your response. THIS QUERY IS PART OF THE PERMANENT MEDICAL RECORD Provider Response: Other Other Diagnosis: Acute blood-loss anemia
--- NOTE | 2021-03-29 08:00 | P.PNGS_ITS ---
Subjective Subjective Date of Service: 03/29/21 Interval history: Patient reports incisional pain. Denies nausea or vomiting. Pain medication last approximately 2 hours before wears off. Physical Exam Vital Signs: Vital Signs: Last Vital Signs Temp 96.7 F L 03/29/21 07:35 Pulse 70 03/29/21 07:35 Resp 18 03/29/21 07:42 BP 97/60 03/29/21 07:35 Pulse Ox 95 03/29/21 07:35 Body Mass Index 43.4 Const: General: cooperative and tired appearing Nutritional Appearance: well nourished and obese Orientation/consciousness: patient oriented x3 Limitations: no limitations Resp: Effort & Inspection: normal respiratory effort, no cough and no res piratory distress GI: Other: Incision clean and intact. ESTUARDO with bloody discharge. Mild distension. Decreased bowel sounds Abdomen image: 1. Subcostal (Eric) incision 2. Epigastric incision 3. Umbilical incision 4. ESTUARDO drain Skin: Other: Warm, dry, no rash Neuro: General: patient oriented x3 Extrem: Other: No edema Procedures Date of Service Date of Service: 03/29/21 Progress Note: A&P Assessment and plan (1) Cholecystitis, acute with cholelithiasis: Status: Acute (2) Status post laparoscopic cholecystectomy: Status: Inactive (3) Acute blood loss anemia: Status: Acute Assessment and Plan: 30-year-old female patient presenting with complaints of abdominal pain right upper quadrant found to have mildly elevated LFTs and evidence of cholelithiasis. LFTs improved and she subsequently underwent laparoscopic cholecystectomy. During the procedure the patient developed bleeding from the liver edge which required an open laparotomy to control with a liver stitch. P atient has a Damien-Gillespie drain in place which is draining some bloody fluid which needs to be left in place. Will monitor hemoglobin hematocrit but hold on any transfusions at this time. Will adjust the patient's pain medication to improved pain control. She was encouraged to get out of bed and ambulate today. Deep breathing exercises were also encouraged. Repeat hemoglobin hematocrit levels in a.m.. Fall Risk Details Current Medications: Current Medications Generic Name Dose Route Start Last Admin Trade Name Freq PRN Reason Stop Dose Admin Albuterol Sulfate 2 puff 03/28/21 20:44 Albuterol Sulfate 90 Mcg 8 Gm Inhaler INHALE Q4H PRN Shortness Of Breath Calcium Carbonate 750 mg 03/28/21 20:51 Calcium Carbonate 750 Mg Tab.Chew PO TID PRN Dyspepsia Docusate Sodium 100 mg 03/27/21 13:32 Docusate Sodium 100 Mg Capsule PO DAILY PRN Constipation Famotidine 20 mg 03/28/21 09:00 03/29/21 07:42 Famotidine/Pf 20 Mg/2 Ml Vial IVPUSH 20 mg DAILY EFFIE Administration Fluticasone Propionate 1 puff 03/28/21 20:53 Fluticasone Propionate 100 Mcg Blst.W.Dev INHALE BID PRN Wheezing Hydromorphone HCl 0.5 mg 03/29/21 07:59 Hydromorphone Hcl 0.5 Mg/0.5 Ml Syringe IVPUSH Q2H PRN Pain, Severe (Pain Scale 7-10) Protocol Piperacillin Sod/Tazobactam 50 mls @ 100 mls/hr 03/27/21 10:30 03/29/21 04:17 Sod 3.375 gm/ Sodium Chloride IV Infused Q6H EFFIE Infusion Dextrose/Lactated Ringer's 1,000 mls @ 125 mls/hr 03/27/21 13:32 03/29/21 07:11 D5lr IVCONT Not Given .Q8H EFFIE Acetaminophen 1,000 mg in 100 mls @ 400 mls/hr 03/28/21 20:44 Ofirmev IV Q6H PRN Pain, Severe (Pain Scale 7-10) Ondansetron HCl 4 mg 03/27/21 13:32 03/27/21 17:58 Ondansetron Hcl 4 Mg/2 Ml Vial IVPUSH 4 mg Q8H PRN Administration Nausea and Vomiting Oxycodone HCl 10 mg 03/29/21 07:59 Oxycodone Hcl Immed Release 5 Mg Tablet PO Q4H PRN Pain, Moderate (Pain Scale 4-6 Pharmacy Consult 1 each 03/27/21 10:15 Consult Rx Perform Med Rec MISCELLANE ONCE PRN Consult order Sodium Chloride 3 ml 03/27/21 16:00 03/29/21 07:11 0.9 % Sodium Chloride Flush 3 Ml Syringe IVFLUSH Not Given QSHIFT EFFIE Zolpidem Tartrate 5 mg 03/27/21 13:32 Zolpidem Tartrate 5 Mg Tablet PO BEDTIME PRN Insomnia Time Spent With Patient Time: Total time spent is greater than 50% in coordination of care (as documented) at patient's floor/unit and/or counseling patient: Time with patient: 15 - 24 minutes Quality Stroke Does the patient have a stroke diagnosis?: No VTE Prior VTE?: No VTE Risk Level:: Surgical - moderate VTE Device Contraindication: N/A - Device Ordered VTE Drug Contraindication: Treatment Not Indicated
[2021-03-29] MEDS: oxyCODONE HCl Immed Release 5 MG TABLET 10 MG PO ×3 (09:19→19:47)
[2021-03-29] MEDS: ondansetron HCL 4 MG/2 ML VIAL IVPUSH (11:29)
[2021-03-29] MEDS: Docusate Sodium 100 MG CAPSULE PO (15:24)
[2021-03-29] MEDS: Calcium Carbonate 750 MG TAB.CHEW PO (22:58)
[2021-03-30] VITALS (7 sets, daily range): BP systolic 100–114; BP diastolic 55–68; PULSE 79–82; RESP 16–19; TEMP 35.9–36.7; O2SAT 95–98
[2021-03-30] MEDS: Piperacillin Sodium/Tazobactam 3.375 GM in 0.9 % Sodium Chloride 50 ML IV ×4 (04:08→21:17)
[2021-03-30] MEDS: Dextrose 5 % and Lactated Ring 1,000 ML 125 ML IVCONT ×2 (04:08→10:34)
[2021-03-30] MEDS: oxyCODONE HCl Immed Release 5 MG TABLET 10 MG PO ×4 (04:22→18:51)
[2021-03-30] MEDS: Calcium Carbonate 750 MG TAB.CHEW PO (05:08)
[2021-03-30 05:41] LABS: MANUAL DIFF FLAG NO
[2021-03-30 05:48] LABS: Basophils Percent Auto 0.2 % (0-2); Eosinophils Absolute Auto 0.2 X10*3/uL (0.0-0.4); Eosinophils Percent Auto 2.1 % (0-4); Hematocrit 27.8 % (37-47); Imm Gran Abs Auto 0.06 X10*3/uL (0.00-0.03); Imm Gran Pct Auto 0.6 % (0.0-0.4); Lymphocytes Absolute Auto 2.9 X10*3/uL (1.2-4.9); Lymphocytes Percent Auto 28.8 % (20-40); Mean Corpuscular HGB Conc 32.4 g/dl (31.0-35.0); Mean Corpuscular Hemoglobin 28.9 pg (27.0-33.0); Mean Corpuscular Volume 89.4 fL (80-98); Mean Platelet Volume 10.3 fL (9.4-12.3); Monocytes Absolute Auto 0.8 X10*3/uL (0.1-1.2); Monocytes Percent Auto 8.3 % (2-11); Platelet Count 207 X10*3/uL (160-400); Red Blood Count 3.11 X10*6/uL (4.20-5.50); Red Cell Distribution Width 13.6 % (11.0-16.0)
[2021-03-30] MEDS: Famotidine/PF 20 MG/2 ML VIAL IVPUSH (08:19)
[2021-03-30] MEDS: HYDROmorphone HCl 0.5 MG/0.5 ML SYRINGE IVPUSH ×4 (08:20→21:17)
--- NOTE | 2021-03-30 10:45 | P.PNGS_ITS ---
Subjective Subjective Date of Service: 03/30/21 Interval history: says she has good pain control Tolerating diet Physical Exam Vital Signs: Vital Signs: Last Vital Signs Temp 96.9 F 03/30/21 07:44 Pulse 80 03/30/21 07:44 Resp 16 03/30/21 07:44 BP 107/55 L 03/30/21 07:44 Pulse Ox 96 03/30/21 07:44 Body Mass Index 43.4 Const: Other: Chemistry 03/28/21 03/29/21 06:31 05:22 Sodium 142 138 Potassium 3.7 4.0 Carbon Dioxide 27 26 BUN 9 5 L Creatinine 0.65 0.60 Calcium 8.2 L D 7.9 L Hematology 03/28/21 03/29/21 03/30/21 06:31 05:22 05:06 WBC 9.5 14.4 H 10.0 Hgb 11.0 L 9.8 L 9.0 L Plt Count 240 240 207 General: comfortable and no acute distress Eyes: Sclerae: sclerae normal Resp: Effort & Inspection: normal respiratory effort GI: Other: Soft, no guarding rebound, dressings dry, ESTUARDO drain with scanty Procedures Date of Service Date of Service: 03/30/21 Progress Note: A&P Assessment and plan (1) Cholecystitis, acute with cholelithiasis: Status: Acute Assessment and Plan: Status post open cholecystectomy Looks well ESTUARDO drain with scanty output Hemoglobin stable Possible home tomorrow Fall Risk Details Current Medications: Current Medications Albuterol Sulfate (Albuterol Sulfate 90 Mcg 8 Gm Inhaler) 2 puff INHALE Q4H PRN PRN Reason: Shortness Of Breath Calcium Carbonate (Calcium Carbonate 750 Mg Tab.Chew) 750 mg PO TID PRN PRN Reason: Dyspepsia Last Admin: 03/30/21 05:08 Dose: 750 mg Documented by: Docusate Sodium (Docusate Sodium 100 Mg Capsule) 100 mg PO DAILY PRN PRN Reason: Constipation Last Admin: 03/29/21 15:24 Dose: 100 mg Documented by: Famotidine (Famotidine/Pf 20 Mg/2 Ml Vial) 20 mg IVPUSH DAILY EFFIE Last Admin: 03/30/21 08:19 Dose: 20 mg Documented by: Fluticasone Propionate (Fluticasone Propionate 100 Mcg Blst.W.Dev) 1 puff INHALE BID PRN PRN Reason: Wheezing Hydromorphone HCl (Hydromorphone Hcl 0.5 Mg/0.5 Ml Syringe) 0.5 mg IVPUSH Q2H PRN; Protocol PRN Reason: Pain, Severe (Pain Scale 7-10) Last Admin: 03/30/21 08:20 Dose: 0.5 mg Documented by: Piperacillin Sod/Tazobactam (Sod 3.375 gm/ Sodium Chloride) 50 mls @ 100 mls/hr IV Q6H [facility] Last Admin: 03/30/21 10:27 Dose: 100 mls/hr Documented by: Dextrose/Lactated Ringer's (D5lr) 1,000 mls @ 125 mls/hr IVCONT .Q8H [facility] Last Admin: 03/30/21 10:34 Dose: 125 mls/hr Documented by: Acetaminophen (Ofirmev) 1,000 mg in 100 mls @ 400 mls/hr IV Q6H PRN PRN Reason: Pain, Severe (Pain Scale 7-10) Ondansetron HCl (Ondansetron Hcl 4 Mg/2 Ml Vial) 4 mg IVPUSH Q8H PRN PRN Reason: Nausea and Vomiting Last Admin: 03/29/21 11:29 Dose: 4 mg Documented by: Oxycodone HCl (Oxycodone Hcl Immed Release 5 Mg Tablet) 10 mg PO Q4H PRN PRN Reason: Pain, Moderate (Pain Scale 4-6 Last Admin: 03/30/21 10:28 Dose: 10 mg Documented by: Pharmacy Consult (Consult Rx Perform Med Rec) 1 each MISCELLANE ONCE PRN PRN Reason: Consult order Sodium Chloride (0.9 % Sodium Chloride Flush 3 Ml Syringe) [facility] Last Admin: 03/30/21 08:21 Dose: Not Given Documented by: Zolpidem Tartrate (Zolpidem Tartrate 5 Mg Tablet) 5 mg PO BEDTIME PRN PRN Reason: Insomnia Time Spent With Patient Time: Total time spent is greater than 50% in coordination of care (as documented) at patient's floor/unit and/or counseling patient: Time with patient: 15 - 24 minutes Quality Stroke Does the patient have a stroke diagnosis?: No VTE Prior VTE?: No VTE Risk Level:: Surgical - moderate VTE Device Contraindication: N/A - Device Ordered VTE Drug Contraindication: Treatment Not Indicated
[2021-03-30] MEDS: Docusate Sodium 100 MG CAPSULE PO (12:55)
[2021-03-31] MEDS: oxyCODONE HCl Immed Release 5 MG TABLET 10 MG PO ×5 (00:19→21:43)
[2021-03-31] MEDS: 0.9 % Sodium Chloride Flush 3 ML SYRINGE IVFLUSH (00:20)
[2021-03-31] MEDS: Piperacillin Sodium/Tazobactam 3.375 GM in 0.9 % Sodium Chloride 50 ML IV ×4 (03:59→21:43)
[2021-03-31 04:00] VITALS: BP 105/52; PULSE 75; RESP 16; TEMP 35.9; O2SAT 96
[2021-03-31 07:41] VITALS: BP 109/59; PULSE 73; RESP 17; TEMP 36.1; O2SAT 96
[2021-03-31] MEDS: Famotidine/PF 20 MG/2 ML VIAL IVPUSH (08:41)
[2021-03-31] MEDS: HYDROmorphone HCl 0.5 MG/0.5 ML SYRINGE IVPUSH (08:41)
[2021-03-31] MEDS: Dextrose 5 % and Lactated Ring 1,000 ML 60 ML IVCONT ×2 (09:33→22:24)
[2021-03-31 11:45] VITALS: BP 131/63; PULSE 93; RESP 18; TEMP 36.5; O2SAT 97
--- NOTE | 2021-03-31 12:05 | PM.PNGS ---
Subjective Subjective Date of Service: 03/31/21 Interval history: Says she still has some pain issues although getting better States that she felt very drowsy after pain meds earlier today She feels she is not ready to be discharged Physical Exam Vital Signs: Vital Signs: Last Vital Signs Temp 97.7 F 03/31/21 11:45 Pulse 93 03/31/21 11:45 Resp 18 03/31/21 11:45 BP 131/63 03/31/21 11:45 Pulse Ox 97 03/31/21 11:45 Body Mass Index 43.4 Const: General: comfortable and no acute distress Resp: Effort & Inspection: normal respiratory effort Cardio: Rate: regular rate GI: Other: Soft, no guarding rebound, ESTUARDO drain with scanty old blood, incision clean Procedures Date of Service Date of Service: 03/31/21 Progress Note: A&P Assessment and plan (1) Cholecystitis, acute with cholelithiasis: Status: Acute Assessment and Plan: Status post lap cholecystectomy Doing well Some pain issues due to long incision, improving Likely ready to be discharged home tomorrow Possibly remove ESTUARDO prior to discharge Fall Risk Details Current Medications: Current Medications Albuterol Sulfate (Albuterol Sulfate 90 Mcg 8 Gm Inhaler) 2 puff INHALE Q4H PRN PRN Reason: Shortness Of Breath Calcium Carbonate (Calcium Carbonate 750 Mg Tab.Chew) 750 mg PO TID PRN PRN Reason: Dyspepsia Last Admin: 03/30/21 05:08 Dose: 750 mg Documented by: Docusate Sodium (Docusate Sodium 100 Mg Capsule) 100 mg PO DAILY PRN PRN Reason: Constipation Last Admin: 03/30/21 12:55 Dose: 100 mg Documented by: Famotidine (Famotidine/Pf 20 Mg/2 Ml Vial) 20 mg IVPUSH DAILY [facility]FFIE Last Admin: 03/31/21 08:41 Dose: 20 mg Documented by: Fluticasone Propionate (Fluticasone Propionate 100 Mcg Blst.W.Dev) 1 puff INHALE BID PRN PRN Reason: Wheezing Hydromorphone HCl (Hydromorphone Hcl 0.5 Mg/0.5 Ml Syringe) 0.5 mg IVPUSH Q2H PRN; Protocol PRN Reason: Pain, Severe (Pain Scale 7-10) Last Admin: 03/31/21 08:41 Dose: 0.5 mg Documented by: Piperacillin Sod/Tazobactam (Sod 3.375 gm/ Sodium Chloride) 50 mls @ 100 mls/hr IV Q6H [facility] Last Infusion: 03/31/21 04:42 Dose: Infused Documented by: Dextrose/Lactated Ringer's (D5lr) 1,000 mls @ 125 mls/hr IVCONT .Q8H [facility] Last Admin: 03/31/21 09:33 Dose: 60 mls/hr Documented by: Acetaminophen (Ofirmev) 1,000 mg in 100 mls @ 400 mls/hr IV Q6H PRN PRN Reason: Pain, Severe (Pain Scale 7-10) Ondansetron HCl (Ondansetron Hcl 4 Mg/2 Ml Vial) 4 mg IVPUSH Q8H PRN PRN Reason: Nausea and Vomiting Last Admin: 03/29/21 11:29 Dose: 4 mg Documented by: Oxycodone HCl (Oxycodone Hcl Immed Release 5 Mg Tablet) 10 mg PO Q4H PRN PRN Reason: Pain, Moderate (Pain Scale 4-6 Last Admin: 03/31/21 11:12 Dose: 10 mg Documented by: Pharmacy Consult (Consult Rx Perform Med Rec) 1 each MISCELLANE ONCE PRN PRN Reason: Consult order Sodium Chloride (0.9 % Sodium Chloride Flush 3 Ml Syringe) [address] [facility] Last Admin: 03/31/21 09:11 Dose: Not Given Documented by: Zolpidem Tartrate (Zolpidem Tartrate 5 Mg Tablet) 5 mg PO BEDTIME PRN PRN Reason: Insomnia Time Spent With Patient Time: Total time spent is greater than 50% in coordination of care (as documented) at patient's floor/unit and/or counseling patient: Time with patient: 15 - 24 minutes Quality Stroke Does the patient have a stroke diagnosis?: No VTE Prior VTE?: No VTE Risk Level:: Surgical - moderate VTE Device Contraindication: N/A - Device Ordered VTE Drug Contraindication: Treatment Not Indicated
[2021-03-31] MEDS: polyethylene glycoL 3350 17 GM POWD.PACK PO (14:21)
[2021-03-31 15:27] VITALS: BP 114/71; PULSE 84; RESP 19; TEMP 36.5; O2SAT 95
[2021-03-31 19:50] VITALS: BP 114/70; PULSE 88; RESP 19; TEMP 36.3; O2SAT 96
[2021-03-31 23:53] VITALS: BP 99/60; PULSE 78; RESP 16; TEMP 36.3; O2SAT 95
[2021-04-01] MEDS: Piperacillin Sodium/Tazobactam 3.375 GM in 0.9 % Sodium Chloride 50 ML IV (03:39)
[2021-04-01] MEDS: oxyCODONE HCl Immed Release 5 MG TABLET 10 MG PO ×2 (03:39→09:27)
[2021-04-01 04:00] VITALS: BP 96/62; PULSE 72; RESP 16; TEMP 36.4; O2SAT 96
[2021-04-01 05:11] LABS: Hematocrit 31.8 % (37-47); Hemoglobin 10.2 g/dl (12.0-16.0); Mean Corpuscular HGB Conc 32.1 g/dl (31.0-35.0); Mean Corpuscular Hemoglobin 28.5 pg (27.0-33.0); Mean Corpuscular Volume 88.8 fL (80-98); Mean Platelet Volume 10.1 fL (9.4-12.3); Platelet Count 250 X10*3/uL (160-400); Red Blood Count 3.58 X10*6/uL (4.20-5.50); Red Cell Distribution Width 13.2 % (11.0-16.0); White Blood Count 11.2 X10*3/uL (4.8-10.8)
[2021-04-01] MEDS: Dextrose 5 % and Lactated Ring 1,000 ML 60 ML IVCONT (05:36)
[2021-04-01 08:00] VITALS: BP 124/61; PULSE 76; RESP 16; TEMP 36.3; O2SAT 97
--- NOTE | 2021-04-01 08:09 | PM.PNGS ---
Subjective Subjective Date of Service: 04/01/21 Interval history: Feels much better this morning. Pain controlled. Eating better and tolerating solid diet. OOB without difficulty. Physical Exam Vital Signs: Vital Signs: Last Vital Signs Temp 97.5 F 04/01/21 04:00 Pulse 72 04/01/21 04:00 Resp 16 04/01/21 04:00 BP 96/62 04/01/21 04:00 Pulse Ox 96 04/01/21 04:00 Body Mass Index 43.4 Const: General: healthy appearing, comfortable and no acute distress Orientation/consciousness: patient oriented x3 Eyes: Sclerae: sclerae normal Resp: Effort & Inspection: normal respiratory effort GI: Inspection: Yes incision (clean) Palpation (GI): Soft to palpation and Tenderness to palpation present (GI) (incisional, mild) Percussion: Yes normal to percussion Skin: General skin exam: no rashes or lesions noted Neuro: General: patient oriented x3 Extrem: General: Yes no clubbing, cyanosis or edema Procedures Date of Service Date of Service: 04/01/21 Progress Note: A&P Assessment and plan (1) Acute blood loss anemia: Status: Acute (2) Cholecystitis, acute with cholelithiasis: Status: Acute Assessment and Plan: 30 year old female admitted with acute cholecystitis now s/p lap converted to open CCY for bleeding on liver edge. She is now doing well post op. Her abdomen is benign and incision clean. Her H/H has remained stable. Her ESTUARDO drain was removed today. She feels ready for discharge. Plan for d/c to home today, f/u in office in 1 week. Patient comfortable with plan. Fall Risk Details Current Medications: Current Medications Albuterol Sulfate (Albuterol Sulfate 90 Mcg 8 Gm Inhaler) 2 puff INHALE Q4H PRN PRN Reason: Shortness Of Breath Calcium Carbonate (Calcium Carbonate 750 Mg Tab.Chew) 750 mg PO TID PRN PRN Reason: Dyspepsia Last Admin: 03/30/21 05:08 Dose: 750 mg Documented by: Docusate Sodium (Docusate Sodium 100 Mg Capsule) 100 mg PO DAILY PRN PRN Reason: Constipation Last Admin: 03/30/21 12:55 Dose: 100 mg Documented by: Famotidine (Famotidine/Pf 20 Mg/2 Ml Vial) 20 mg IVPUSH DAILY [facility] Last Admin: 03/31/21 08:41 Dose: 20 mg Documented by: Fluticasone Propionate (Fluticasone Propionate 100 Mcg Blst.W.Dev) 1 puff INHALE BID PRN PRN Reason: Wheezing Hydromorphone HCl (Hydromorphone Hcl 0.5 Mg/0.5 Ml Syringe) 0.5 mg IVPUSH Q2H PRN; Protocol PRN Reason: Pain, Severe (Pain Scale 7-10) Last Admin: 03/31/21 08:41 Dose: 0.5 mg Documented by: Piperacillin Sod/Tazobactam (Sod 3.375 gm/ Sodium Chloride) 50 mls @ 100 mls/hr IV Q6H [facility] Last Infusion: 04/01/21 04:25 Dose: Infused Documented by: Dextrose/Lactated Ringer's (D5lr) 1,000 mls @ 125 mls/hr IVCONT .Q8H [facility] Last Admin: 04/01/21 05:36 Dose: 60 mls/hr Documented by: Ondansetron HCl (Ondansetron Hcl 4 Mg/2 Ml Vial) 4 mg IVPUSH Q8H PRN PRN Reason: Nausea and Vomiting Last Admin: 03/29/21 11:29 Dose: 4 mg Documented by: Oxycodone HCl (Oxycodone Hcl Immed Release 5 Mg Tablet) 10 mg PO Q4H PRN PRN Reason: Pain, Moderate (Pain Scale 4-6 Last Admin: 04/01/21 03:39 Dose: 10 mg Documented by: Pharmacy Consult (Consult Rx Perform Med Rec) 1 each MISCELLANE ONCE PRN PRN Reason: Consult order Sodium Chloride (0.9 % Sodium Chloride Flush 3 Ml Syringe) 3 ml IVFLUSH QSHIFT [facility] Last Admin: 03/31/21 22:44 Dose: Not Given Documented by: Zolpidem Tartrate (Zolpidem Tartrate 5 Mg Tablet) 5 mg PO BEDTIME PRN PRN Reason: Insomnia Time Spent With Patient Time: Total time spent is greater than 50% in coordination of care (as documented) at patient's floor/unit and/or counseling patient: Time with patient: 15 - 24 minutes Quality Stroke Does the patient have a stroke diagnosis?: No VTE Prior VTE?: No VTE Risk Level:: Surgical - moderate VTE Device Contraindication: N/A - Device Ordered VTE Drug Contraindication: Treatment Not Indicated
--- NOTE | 2021-04-01 09:41 | MHC.CM.PN ---
PT DISCHARGING HOME SELF-CARE, [facility] SHUTTLE FOR TRANSPORT
--- NOTE | 2021-04-01 10:24 | P.DS_ITS ---
DS: Providers Provider Date of Service: 04/01/21 Date of admission: 03/27/21 10:29 Primary care physician: [facility] Attending physician on admission: Kirk Farfan DS: Diagnosis Discharge Diagnosis (1) Acute blood loss anemia: Status: Acute (2) Cholecystitis, acute with cholelithiasis: Status: Acute DS: Summary Hospital Course Hospital Course: BRIEF HPI: Sierra Boyce is a 30 year old female presenting with complaints of abdominal pain in the right upper quadrant beginning at 00:30 today.? She reports a previous episode approximately 2 weeks ago occurring in the epigastrium radiating to the right upper quadrant.? The initial episode occurred after eating [employer].? She initially thought it was due to her GERD however symptoms today were much worse resulting in nausea and vomiting.? She denies a previous history of similar pains prior to the last 2 weeks.? She denies fever, chills, diarrhea, or constipation.? She presented to the emergency department was found to have elevated liver function tests.? Ultrasound of the abdomen confirmed multiple gallstones within the gallbladder without wall thickening or pericholecystic fluid.? HOSPITAL COURSE: She was admitted to the surgical service for management of acute cholecystitis due to cholelithiasis, trending of the liver function tests and possible laparoscopic cholecystectomy. The following day her liver function improved. She wanted to proceed with cholecystectomy and was added onto the OR shedule. On 03/28/21, a laparoscopic cholecystectomy converted to open was performed by Dr. Farfan. Upon dissection of the gallbladder at the level of the fundus, an area of bleeding was identified once the gallbladder was removed.? Pulsatile flow was noted from this vessel suggestive of an intrahepatic artery.? Attempt at clipping were unsuccessful therefore an open laparotomy was required to control liver bleeding.?A ESTUARDO drain was placed intraopertively. This was controlled using a U-stitch. The patient tolerated the procedure well, completed recovery in PACU and was admitted to the medical/surgical floor for observation. The patient had an uncomplicated recovery course. Her H/H remained stable post operatively and began to trend up. She remained inpatient for pain control. Her ESTUARDO drain output decreased and became scanty and was removed. On the day of discharge, she was tolerating a solid diet, her pain was controlled on PO analgesics with a benign abdominal exam and clean incision. She was discharged to home on 04/01/21 in stable condition. She is to follow up with Dr. Farfan in the office in 1 week. Status at Discharge Functional status at discharge: independent ambulation Overall status at discharge: patient is progressing back to baseline Time Spent with Patient Time attestation: Total time spent providing and/or coordinating discharge services: Discharge coordination time: Greater than 30 minutes Quality: Stroke Does the patient have a stroke diagnosis?: No Physical Exam Vital Signs: Vital Signs: Last Vital Signs Temp 97.3 F 04/01/21 08:00 Pulse 76 04/01/21 08:00 Resp 16 04/01/21 08:00 BP 124/61 04/01/21 08:00 Pulse Ox 97 04/01/21 08:00 Body Mass Index 43.4 Const: General: healthy appearing, comfortable, no acute distress and alert Orientation/consciousness: patient oriented x3 Resp: Effort & Inspection: normal respiratory effort GI: Inspection: No distended and Yes incision (clean) Palpation (GI): Soft to palpation, Tenderness to palpation present (GI) (mild, incisional), no g uarding and not rigid Percussion: Yes normal to percussion Skin: General skin exam: no rashes or lesions noted Neuro: General: patient oriented x3 Extrem: General: Yes no clubbing, cyanosis or edema DS: Data Data Completed and Pending Pending studies at discharge: Pending at discharge 03/28/21 13:26 Surgical [PTH] Routine Labs on day of discharge: Laboratory Results - last 24 hr 04/01/21 04:51 WBC 11.2 H RBC 3.58 L Hgb 10.2 L Hct 31.8 L MCV 88.8 MCH 28.5 MCHC 32.1 RDW 13.2 Plt Count 250 MPV 10.1 Absolute Nucleated RBC 0.000 Nucleated RBC % (auto) 0.0 Preliminary micro results at discharge 03/27/21 10:50 Blood Culture - Preliminary Blood - Venous No growth after 48 hours. 03/27/21 10:39 Blood Culture - Preliminary Blood - Venous No growth after 48 hours. Discharge Plan Discharge Patient Disposition: Home, Self-Care Discharge Diagnosis: acute cholecystitis Referrals: [facility] [Primary Care Provider] - 1 Week Kirk Farfan MD [Physician] - 1 Week Discharge Medications: New oxycodone 5 mg tablet 5 mg PO Q4H PRN (Reason: pain (scale score 7-10)) Qty: 30 RF: 0 docusate sodium [Colace] 100 mg capsule 100 mg PO BID PRN (Reason: constipation) Qty: 30 RF: 0 acetaminophen [Tylenol Extra Strength] 500 mg tablet 1,000 mg PO Q6H PRN (Reason: abdominal pain) Qty: 30 RF: 0 Continued famotidine 20 mg tablet 1 tab PO BID RF: 0 albuterol sulfate [ProAir HFA] 90 mcg/actuation HFA aerosol inhaler 2 puff PO Q4-6H PRN (Reason: Shortness Of Breath) RF: 0 Flovent HFA 110 mcg/actuation HFA aerosol inhaler 1 puff inhalation BID PRN (Reason: Wheezing) RF: 0 calcium carbonate 500 mg calcium (1,250 mg) Tablet,Chewable 500 mg PO TID PRN (Reason: Dyspepsia) RF: 0 melatonin 10 mg Tablet 10 mg PO BEDTIME PRN (Reason: Insomnia) RF: 0 Discharge Orders: Discharge Order (Routine); Ordered 04/01/21 Ordered By: Valery Goode Diet: advance to usual diet Activity on Discharge: No heavy lifting Stand Alone Forms: Patient Portal Discharge page, Work/School Release Activity Restrictions/Additional Instructions: If the incision area is tender, you may apply an ice pack for short intervals (No more than 20 minutes on, followed by at least 20 minutes off). Do not apply heat. Do not use creams, lotions, or topical antibiotics unless instructed to do so by your surgeon. These can cause infection or allergic reaction. Ok to shower. You have arely closing your incision and these will be removed approximately 10-14 days after surgery. NO HEAVY LIFTING (>10lbs). Follow up in office with Dr. Farfan in 1 week. ([phone]) Call Your Doctor If: -Your temperature exceeds 101.5? F -You experience excessive pain or swelling -You have an unexpected reaction to medication -You have excessive bleeding -You experience continued vomiting/nausea -Your incision begins to separate -Your incision shows signs of infection such as increased redness, swelling, excessive pain, drainage (light blood or clear fluid is normal) or hea t Care Plan Goals: Return to baseline health and gradual return to activity following recovery period. Health Concerns: Laparoscopic cholecystectomy converted to open laparotomy Plan of Treatment: F/u in office Assessment: Doing well post op and stable for discharge to home. Patient Instructions: Low Fat Diet (GEN) Discharge Date/Time: 04/01/21 10:28
[2021-04-01 10:48] LABS: Base Excess Bedside Calculated 2 mmol/L (-3-3); Glucose, i-STAT 124 mg/dL (60-115); HCO3 Bedside Calculated 28 mmol/L (22-26); Hematocrit Bedside 31 %PCV (37-47); Hemoglobin Bedside 10.5 g/dL (12.0-16.0); SO2 Bedside Calculated 88 %; Sodium Bedside 143 mmol/L (135-145); TCO2 Bedside 30 mmol/L (24-29); pCO2 Bedside 52 mmhg (35-48); pH Bedside 7.34 (7.35-7.45); pO2 Bedside 59 mmhg (83-108)
== END 2021-04-01 10:28 | disposition home or self-care (01) | DRG 263 ==
LOC: HO.ED 10:15 → HO.EDOVER 10:49 → HO.ISO 12:44 → HO.S3 03-28 15:45
PROVIDERS: Surgery; Admitting Provider Surgery; Emergency Provider Emergency Medicine; Visit Provider Surgery
PROC: 0FT44ZZ Resection of Gallbladder, Percutaneous Endoscopic Approach (ICD-10-PCS; CPT 47562; principal; 2021-03-28 12:00)
DX: K80.50 Calculus of bile duct without cholangitis or cholecystitis without obstruction (principal); D62 Acute posthemorrhagic anemia; K21.9 Gastro-esophageal reflux disease without esophagitis; Z20.822 Contact with and (suspected) exposure to COVID-19; Z79.899 Other long term (current) drug therapy
CPT/HCPCS: 36415; 76705; 80048; 80053; 80076; 81001; 81025; 82248; 83605; 83690; 85025; 85027; 86850; 86900; 86901; 87040; 87086; 87635; 88304; 96361; 96365; 96375; 99024; 99285; J0131; J1100; J1170; J1885; J2250; J2270; J2405; J2543; J3010

== ENCOUNTER → 2021-04-09 10:03 | Outpatient (BNVA) | payer MEDICAID, SELFPAY | PROVIDERS: Visit Provider Surgery | DX: Z48.815 Encounter for surgical aftercare following surgery on the digestive system (principal); Z90.49 Acquired absence of other specified parts of digestive tract | CPT/HCPCS: 99212 ==

== ENCOUNTER → 2021-05-14 08:48 | Outpatient (BNVA) | payer MEDICAID, SELFPAY | PROVIDERS: Referring Provider Internal Medicine; Visit Provider Surgery | DX: Z48.815 Encounter for surgical aftercare following surgery on the digestive system (principal); Z90.49 Acquired absence of other specified parts of digestive tract | CPT/HCPCS: 99212 ==

== ENCOUNTER 2021-08-23 09:56 | Outpatient (REF) | payer MEDICAID, SELFPAY ==
--- NOTE | ~2021-08-23 | XR_ITS ---
EXAMINATION: XR CHEST 2 VIEW CLINICAL INFORMATION: Asthma with acute exacerbation COMPARISON: None TECHNIQUE: PA and lateral views of the chest obtained. FINDINGS: The lungs are clear. There are no pleural effusions. The cardiomediastinal silhouette is normal. XR/XR chest 2V IMPRESSION: No active cardiopulmonary disease.
== END 2021-08-23 09:57 | disposition home or self-care (01) ==
LOC: HO.XRAY 09:56
PROVIDERS: PCP Internal Medicine; Visit Provider Emergency Medicine
DX: J45.21 Mild intermittent asthma with (acute) exacerbation (principal)
CPT/HCPCS: 71046

== ENCOUNTER 2021-08-24 07:54 | Emergency (ER) | payer MEDICAID, SELFPAY ==
[2021-08-24 08:13] VITALS: BP 122/70; BP 130/72; PULSE 87; PULSE 92; RESP 20; TEMP 37.1; O2SAT 95; BMI 40.1
--- NOTE | 2021-08-24 08:13 | ED.ASTHMA ---
HPI - Asthma General Chief Complaint: Asthma Stated Complaint: ASTHMA EXAC W/CHEST TIGHTNESS,95% RA PER EMS Time Seen by Provider: 08/24/21 08:06 History of Present Illness HPI Narrative: Patient is a 31-year-old female presents today with having wheezing. History of asthma in the past. Never been intubated have not been admitted since childhood. Patient has been on steroids for the last few days. Positive coughing patient is immunized for COVID. Positive generalized malaise. Patient noted a decrease in O2 sat via pulse ox subsequently came to the ED for further evaluation. Related Data Home Medications Medication Instructions Recorded Confirmed albuterol sulfate 90 mcg/actuation 2 puff PO Q4-6H PRN 03/27/21 05/14/21 aerosol inhaler (ProAir HFA) calcium carbonate 500 mg calcium 500 mg PO TID PRN 03/27/21 05/14/21 (1,250 mg) chewable tablet famotidine 20 mg tablet 1 tab PO BID 03/27/21 05/14/21 fluticasone propionate 110 1 puff INHALATION BID PRN 03/27/21 05/14/21 mcg/actuation HFA aerosol inhaler (Flovent HFA) melatonin 10 mg tablet 10 mg PO BEDTIME PRN 03/27/21 05/14/21 Previous Rx's Medication Instructions Recorded docusate sodium 100 mg capsule 100 mg PO BID PRN #30 cap 03/29/21 (Colace) acetaminophen 500 mg tablet 1,000 mg PO Q6H PRN #30 tab 04/01/21 (Tylenol Extra Strength) albuterol sulfate 90 mcg/actuation 2 inh INHALATION Q6H PRN #1 ea 08/24/21 breath activated powder inhaler prednisone 20 mg tablet 40 mg PO DAILY #10 tab 08/24/21 Allergies Allergy/AdvReac Type Severity Reaction Status Date / Time No Known Allergies Allergy Verified 04/09/21 10:31 [No Known Allergies*] Review of Systems Review of Systems: No heart problem Positive history of asthma Patient never intubated All systems reviewed otherwise negative PMFSH Past Medical History Attestation statement: The following information was validated with the patient. Medical History Asthma Surgical History Status post laparoscopic cholecystectomy Social History Social History Household Members: Family Housing: Apartment Do you presently have visiting nurse or other home services: No Patient Tobacco Use Status: Never used Tobacco Use of substances other than those prescribed or required for medical reasons: No Substance Use Type: Marijuana Advance Directives: No Advance Directives Information Provided: No service: No Current occupational status: unemployed Physical Exam Vital Signs: Vital Signs: Last Vital Signs Temp 98.8 F 08/24/21 08:13 Pulse 87 08/24/21 08:34 Resp 20 08/24/21 08:34 BP 122/70 08/24/21 08:13 Pulse Ox 95 08/24/21 08:13 BMI result Body Mass Index 40.1 Appearance: Alert. Oriented X3. No acute distress. Eyes: Pupils equal, round and reactive to light. ENT: Pharynx normal. Neck: Normal inspection. Neck supple. No lymph nodes noted. No crepitus CVS: Normal heart rate and rhythm. Pulses normal. Normal S1 and S2 Respiratory: No respiratory distress. Breath sounds normal. No Wheezing. No rales Abdomen: Soft and nontender. No rigidity. No distention. good BS x4 Skin: Skin warm and dry. Normal skin color. Normal skin turgor. Extremities: No lower extremity edema. Neurovascular intact to all extremities. No Lacerations. No Rash Neuro: Oriented X 3. No motor deficit. No sensory deficit. Moving all extermities. No slurred speech MDM - Asthma MDM Narrative Medical decision making narrative: Patient given neb treatment O2 sat 96% on room air. Lungs are minimally wheezy. Will discharge patient home moving good air. COVID test was negative. Patient is in stable condition. Differential Diagnosis Differential diagnosis: Likely Acute exacerbation Medical Records Attestation: I reviewed the patient's medical records. Lab Data Attestation: I reviewed the patient's lab results. Labs: Lab Results 08/24/21 Range/Units 08:51 COVID-19 ([facility]) Negative (Negative) COVID-19 Clin Com See Note Discharge Plan Discharge Clinical Impression: Asthma with acute exacerbation Patient Disposition: Home, Self-Care Instructions: Asthma (DC) Prescriptions: New prednisone 20 mg tablet 40 mg PO DAILY Qty: 10 0RF albuterol sulfate 90 mcg/actuation aerosol powdr breath activated 2 inh inhalation Q6H PRN (Reason: shortness of breath) Qty: 1 0RF No Action famotidine 20 mg tablet 1 tab PO BID 0RF albuterol sulfate [ProAir HFA] 90 mcg/actuation HFA aerosol inhaler 2 puff PO Q4-6H PRN (Reason: Shortness Of Breath) 0RF Flovent HFA 110 mcg/actuation HFA aerosol inhaler 1 puff inhalation BID PRN (Reason: Wheezing) 0RF calcium carbonate 500 mg calcium (1,250 mg) Tablet,Chewable 500 mg PO TID PRN (Reason: Dyspepsia) 0RF melatonin 10 mg Tablet 10 mg PO BEDTIME PRN (Reason: Insomnia) 0RF docusate sodium [Colace] 100 mg capsule 100 mg PO BID PRN (Reason: constipation) Qty: 30 0RF acetaminophen [Tylenol Extra Strength] 500 mg tablet 1,000 mg PO Q6H PRN (Reason: abdominal pain) Qty: 30 0RF Referrals: Mirela Rodriguez MD [Primary Care Provider] - 2 days
[2021-08-24 08:34] VITALS: PULSE 87; RESP 20; O2SAT 95
[2021-08-24] MEDS: Albuterol/Iprat 2.5/0.5MG 3 ML AMPUL.NEB INHALE (08:34)
[2021-08-24] MEDS: predniSONE 20 MG TABLET 40 MG PO (08:35)
[2021-08-24 09:09] LABS: COVID-19 Test Negative (Negative)
== END 2021-08-24 09:42 | disposition home or self-care (01) ==
PROVIDERS: Emergency Provider Emergency Medicine Emergency Medical Services; PCP Internal Medicine
DX: J45.901 Unspecified asthma with (acute) exacerbation (principal); Z20.822 Contact with and (suspected) exposure to COVID-19; R53.81 Other malaise
CPT/HCPCS: 87635; 94640; 99284

== ENCOUNTER 2023-02-24 14:10 | Outpatient (AMB) | payer MEDICAID, SELFPAY ==
--- NOTE | 2023-02-24 14:15 | A.OFFVIS_ITS ---
Intake Vital Signs 02/24/23 14:31 Height 5 ft 3 in Weight 250 lb BMI 44.3 BP 121/71 Blood Pressure Location Lt brachial Position Sitting Pulse 84 Intake Visit Reasons: Dermoid cyst of Right ear Intake Note: Patient is seen in office for evaluation and treatment of a cyst of the right ear. Patient c/o: onset on year, has increase in size, started as a small lump was I&D in the past and came back a few months after,darker in color denies discharge, redness, or other concerns Director Vaccine Required: No Accompanied by: Self / Same As Patient Allergies No Known Allergies [No Known Allergies*] Allergy (Verified 04/09/21 10:31) Medication List - Last Reconciled 02/24/23 by Kirk Farfan MD budesonide-formoterol 80-4.5 mcg/actuation (Symbicort) 2 puffs inhalation cetirizine 10 mg PO QAM famotidine 1 tab PO BID HPI HPI Comments History of Present Illness Details 32-year-old female patient presenting with a cystic lesion of the right ear lobe. The lesions were present for several years and has gradually increased in size. She previously underwent incision and drainage of the lesion with production of a whitish thick discharge. The lesion subsequently returned and has increased in size. She denies any ongoing pain, bleeding or discharge. She is requesting excision of this lesion. [facility] Medical History Asthma Surgical History Status post laparoscopic cholecystectomy Family History Father Cancer of unknown origin Social History Household Members: Family Housing: Apartment Do you presently have visiting nurse or other home services: No Alcohol intake: current Alcohol intake frequency: holidays/special occasions only Patient Tobacco Use Status: Never used Tobacco Substance Use Type: Marijuana service: No Current occupational status: unemployed Review of Systems Const All systems reviewed & are unremarkable except as noted in HPI and below Denies chills, Denies fever(s), Denies headache(s), Denies poor appetite and Denies weakness ENT Denies headache(s) Card Denies chest pain, Denies irregular heart rhythm, Denies palpitations and Denies dyspnea Resp Denies cough, Denies excessive phlegm production and Denies dyspnea GI Denies abdominal pain, Denies bloating, Denies change in bowel habits, Denies constipation, Denies heartburn, Denies diarrhea, Denies nausea and Denies vomiting Denies urinary frequency Musc Denies back pain, Denies muscle weakness and Denies numbness Skin/Breast Denies changing lesions and Denies unusual bruising Neuro Denies headache(s), Denies numbness, Denies paresthesias and Denies weakness Psych Denies anxiety and Denies depression Endo Denies palpitations Saroj/Lymph Denies lymphadenopathy Physical Exam Const General: cooperative and no acute distress Nutritional Appearance: well nourished Orientation/consciousness: patient oriented x3 Limitations: no limitations HEENT Head: Yes normocephalic and Yes atraumatic Ears: hearing grossly normal bilaterally Outer ear/TM images: 1. 1 cm raise, cystic lesion right ear with bluish discoloration suggestive of an epidermal inclusion cyst. Resp Effort & Inspection: normal respiratory effort, no audible wheezes, no cough and no respiratory distress Cardio Jugular venous distension: no JVD GI Inspection: Yes normal to inspection Skin Other: Warm, dry, no rash Neuro General: patient oriented x3 Extrem General: Yes no clubbing, cyanosis or edema Assessment & Plan Assessment & Plan (1) Epidermal inclusion cyst: Comment: Right ear lobe Code(s): L72.0 - Epidermal cyst Plan 32-year-old female patient with a right ear lobe epidermal inclusion cyst which is increasing in size and return after a previous incision and drainage. On examination there is a 1 cm epidermal inclusion cyst located within the ear lobe. I recommended an excision under local anesthesia as a minor surgery. After discussion of the procedure, risks, and alternatives, she consents to the surgery. Coding Level of Care Code Est Pt Level 4 (39313) Diagnoses Epidermal inclusion cyst L72.0
[2023-02-24 14:31] VITALS: BP 121/71; PULSE 84; BMI 44.3
== END 2023-02-24 14:55 | disposition home or self-care (01) ==
PROVIDERS: PCP Internal Medicine; Referring Provider Internal Medicine; Visit Provider Surgery
DX: L72.0 Epidermal cyst (principal)
CPT/HCPCS: 99214

== ENCOUNTER → 2023-02-24 14:10 | Outpatient (BNVA) | payer MEDICAID, SELFPAY | PROVIDERS: PCP Internal Medicine; Referring Provider Internal Medicine; Visit Provider Surgery | DX: L72.0 Epidermal cyst (principal) | CPT/HCPCS: 99212 ==

== ENCOUNTER 2023-04-24 13:51 | Outpatient (REF) | payer MEDICAID, SELFPAY ==
[2023-04-24 15:59] LABS: MANUAL DIFF FLAG NO
[2023-04-24 16:11] LABS: Basophils Percent Auto 0.4 % (0-2); Eosinophils Absolute Auto 0.7 X10*3/uL (0.0-0.4); Eosinophils Percent Auto 7.2 % (0-4); Hematocrit 40.8 % (37.0-47.0); Hemoglobin 13.2 g/dl (12.0-16.0); Imm Gran Abs Auto 0.04 X10*3/uL (0.00-0.03); Imm Gran Pct Auto 0.4 % (0.0-0.4); Lymphocytes Absolute Auto 2.7 X10*3/uL (1.2-4.9); Lymphocytes Percent Auto 27.3 % (20-40); Mean Corpuscular HGB Conc 32.4 g/dl (31.0-35.0); Mean Corpuscular Hemoglobin 28.8 pg (27.0-33.0); Mean Corpuscular Volume 88.9 fL (80.0-98.0); Mean Platelet Volume 10.6 fL (9.4-12.3); Monocytes Absolute Auto 0.5 X10*3/uL (0.1-1.2); Neutrophils Absolute Auto 5.9 x10*3/uL (2.0-8.3); Neutrophils Percent Auto 59.7 % (45-73); Platelet Count 282 X10*3/uL (160-400); Red Blood Count 4.59 X10*6/uL (4.20-5.50); Red Cell Distribution Width 12.7 % (11.0-16.0); White Blood Count 9.9 X10*3/uL (4.8-10.8)
[2023-04-24 16:22] LABS: Cholesterol 135 mg/dL (<200); HDL Cholesterol 35 mg/dL (>40); LDL Cholesterol Calculated 82 mg/dL (<100); Triglycerides 94 mg/dL (<150)
[2023-04-24 16:42] LABS: Alanine Aminotransferase 17 U/L (0-31); Albumin Level 4.3 g/dL (3.5-5.0); Alkaline Phosphatase 69 U/L (39-117); Anion Gap 17 (12-20); Aspartate Amino Transferase 16 U/L (5-31); Bilirubin Total 0.4 mg/dL (0.0-1.0); Blood Urea Nitrogen 11 mg/dL (9-16); Calcium 9.6 mg/dL (8.4-10.2); Carbon Dioxide 22 mmol/L (22-29); Chloride 106 mmol/L (96-108); Estimated Glomerular Filt Rate > 60; Glucose Random 89 mg/dL (60-115); Potassium 3.9 mmol/L (3.3-5.1); Sodium 141 mmol/L (135-145); Total Protein 8.1 g/dL (6.5-8.0)
[2023-04-24 16:48] LABS: Vitamin D 25-OH Total 17.4 ng/mL (>30)
[2023-04-24 18:48] LABS: Reflex LDLD? No
[2023-04-27 08:33] LABS: HBS Num1 80.87 mIU/mL (0-7.99); HBc Num1 0.12 S/CO (0.00-0.79); HBsAGNum1 0.37 S/CO (0.00-0.99); Hepatitis A Antibody IgM 0.23 Index (0-0.79); Hepatitis B Core Antibody Nonreactive (Nonreactive); Hepatitis B Surface Antigen Negative (Negative); ~HepC Num1 0.07 S/CO (0.00-0.79); ~Hepatitis A Antibody IgM Nonreactive (Nonreactive); ~Hepatitis B Surface Antibody REACTIVE (Nonreactive); ~Hepatitis C Antibody Nonreactive (Nonreactive)
== END 2023-04-24 13:52 | disposition home or self-care (01) ==
LOC: HO.HHCL 13:51
PROVIDERS: Visit Provider Internal Medicine
DX: E66.01 Morbid (severe) obesity due to excess calories (principal); Z71.3 Dietary counseling and surveillance
CPT/HCPCS: 36415; 80053; 80061; 82306; 85025; 86704; 86706; 86709; 86803; 87340

== ENCOUNTER 2023-09-03 14:10 | Outpatient (AMB) | payer OTHER, MEDICAID, SELFPAY ==
--- NOTE | 2023-09-03 14:14 | MHC.OFFVIS ---
Intake Vital Signs 09/03/23 14:19 Height 5 ft 3 in Weight 251 lb 4 oz BMI 44.5 BP 118/70 Blood Pressure Location Lt brachial Position Sitting Pulse 88 Intake Visit Reasons: Dermoid cyst of Right ear, re-discuss surgery Intake Note: Patient is seen in office to re-discuss surgery, following dermoid cyst of the right ear. Pt c/o: since last visit cyst is more painful when applying pressure, no other concerns L.OV:02/24/23 [employer] Hrms Developer Required: No Accompanied by: Self / Same As Patient Allergies No Known Allergies [No Known Allergies*] Allergy (Verified 04/09/21 10:31) HPI HPI Comments History of Present Illness Details 33-year-old female patient previously evaluated for a right ear epidermal inclusion cyst returning today to rediscuss excision of this enlarging cyst. She reports a previous infection which is now resolved. She denies any pain or discharge, fever or chills. [facility] Medical History Asthma Surgical History Status post laparoscopic cholecystectomy Family History Father Cancer of unknown origin Social History Household Members: Family Housing: Apartment Do you presently have visiting nurse or other home services: No Alcohol intake: current Alcohol intake frequency: holidays/special occasions only Patient Tobacco Use Status: Never used Tobacco Substance Use Type: Marijuana service: No Current occupational status: unemployed Review of Systems Const All systems reviewed & are unremarkable except as noted in HPI and below Denies chills, Denies fever(s), Denies headache(s), Denies poor appetite and Denies weakness ENT Denies headache(s) Card Denies chest pain, Denies irregular heart rhythm, Denies palpitations and Denies dyspnea Resp Denies cough, Denies excessive phlegm production and Denies dyspnea GI Denies abdominal pain, Denies bloating, Denies change in bowel habits, Denies constipation, Denies heartburn, Denies diarrhea, Denies nausea and Denies vomiting Denies urinary frequency Musc Denies back pain, Denies muscle weakness and Denies numbness Skin/Breast Denies changing lesions and Denies unusual bruising Neuro Denies headache(s), Denies numbness, Denies paresthesias and Denies weakness Psych Denies anxiety and Denies depression Endo Denies palpitations Saroj/Lymph Denies lymphadenopathy Physical Exam Const General: cooperative and no acute distress Nutritional Appearance: well nourished Orientation/consciousness: patient oriented x3 Limitations: no limitations HEENT Head: Yes normocephalic and Yes atraumatic Ears: hearing grossly normal bilaterally Outer ear/TM images: 1. 1.0 cm cyst Resp Effort & Inspection: normal respiratory effort, no audible wheezes, no cough and no respiratory distress Cardio Jugular venous distension: no JVD GI Inspection: Yes normal to inspection Skin Other: Warm, dry, no rash Neuro General: patient oriented x3 Extrem General: Yes no clubbing, cyanosis or edema Assessment & Plan Assessment & Plan (1) Epidermal inclusion cyst: Comment: Right ear lobe Code(s): L72.0 - Epidermal cyst Plan 33-year-old female patient with a right ear lobe epidermal inclusion cyst which is increasing in size and return after a previous incision and drainage. On examination there is a 1 cm epidermal inclusion cyst located within the ear lobe. I recommended an excision under local anesthesia as a minor surgery. After discussion of the procedure, risks, and alternatives, she consents to the surgery. Coding Level of Care Code Est Pt Level 3 (59204) Diagnoses Epidermal inclusion cyst L72.0
[2023-09-03 14:19] VITALS: BP 118/70; PULSE 88; BMI 44.5
== END 2023-09-03 14:30 | disposition home or self-care (01) ==
PROVIDERS: PCP Internal Medicine; Visit Provider Surgery
DX: L72.0 Epidermal cyst (principal)
CPT/HCPCS: 99213

== ENCOUNTER → 2023-09-03 14:10 | Outpatient (BNVA) | payer OTHER, MEDICAID, SELFPAY | PROVIDERS: PCP Internal Medicine; Visit Provider Surgery ==

== ENCOUNTER 2023-10-10 11:39 | Emergency (ER) | payer OTHER, MEDICAID, SELFPAY ==
[2023-10-10 12:06] VITALS: BP 110/52; PULSE 83; RESP 18; TEMP 37.2; O2SAT 95; BMI 44.6
--- NOTE | 2023-10-10 12:09 | ED_ITS ---
HPI - General Adult General Chief complaint: Upper Respiratory Symptoms Stated complaint: chills sore throat cough Time Seen by Provider: 10/10/23 13:07 Source: patient and family (son ) Mode of arrival: ambulatory Limitations: no limitations History of Present Illness HPI narrative: 33 year-old female history of biliary colic, cholecystitis, acute blood loss anemia presenting to the emergency department with fatigue, malaise, myalgias, sore throat, coughing, sneezing, diffuse headache without visual disturbances, dizziness or trauma all of which started yesterday. Family at home sick with similar symptoms. Denies chest pain, shortness of breath, nausea, vomiting, diarrhea, abdominal pain, vision changes, weakness. Related Data Home Medications Medication Instructions Recorded Confirmed famotidine 20 mg tablet 1 tab PO BID 03/27/21 02/24/23 budesonide-formoterol HFA 80 2 puff inhalation 02/24/23 02/24/23 mcg-4.5 mcg/actuation aerosol inhaler (Symbicort) albuterol sulfate 90 mcg/actuation inhalation 09/03/23 aerosol inhaler Allergies Allergy/AdvReac Type Severity Reaction Status Date / Time No Known Allergies Allergy Verified 04/09/21 10:31 [No Known Allergies*] Review of Systems Review of Systems: Yes all other systems are reviewed and are negative PMFSH Past Medical History Attestation statement: The following information was validated with the patient. Source: old records reviewed and nursing notes reviewed Medical History Asthma Surgical History Status post laparoscopic cholecystectomy Family History Family History Father Cancer of unknown origin Social History Social History Household Members: Family Housing: Apartment Do you presently have visiting nurse or other home services: No Alcohol intake: current Alcohol intake frequency: holidays/special occasions only Patient Tobacco Use Status: Never used Tobacco Substance Use Type: Marijuana service: No Current occupational status: unemployed Physical Exam ED Vital Signs: Vital Signs - 24 hr 10/10/23 12:06 Temperature 99.0 F Pulse Rate 83 Respiratory Rate 18 Blood Pressure 110/52 L Pulse Oximetry 95 Oxygen Delivery Method Room Air BMI result Body Mass Index 44.6 vss Appearance: Alert.? Oriented X3.? No acute distress.? Head: Normocephalic, atraumatic, no step-offs or deformities Eyes: Pupils equal, round and reactive to light.? ENT: Pharynx w/ erythema to posterior pharynx and right tonsil slightly more enlarged than left. No signs of abscess uvula midline. Speaking in full sentences controlling secretions well. Neck: Normal inspection.? Neck supple.? CVS: Normal heart rate and rhythm.? Pulses normal.? Respiratory: No respiratory distress.? Breath sounds normal.? Abdomen: Soft and nontender.? Skin: Skin warm and dry.? Normal skin color.? Normal skin turgor.? Extremities: No lower extremity edema.? No calf ttp. 5/5 strength to bilateral upper and lower extremities Neuro: Oriented X 3.? No motor deficit.? No sensory deficit. CN 2-12 intact Course Course Course Narrative: This is an RME: Additional HPI, ROS, PE not included below will be deferred to primary provider. 33 year-old female history of biliary colic, cholecystitis, acute blood loss anemia presenting to the emergency department with fatigue, malaise, myalgias, sore throat, coughing, sneezing, diffuse headache without visual disturbances, dizziness or trauma all of which started yesterday. Family at home sick with similar symptoms. Denies chest pain, shortness of breath, nausea, vomiting, diarrhea, abdominal pain, vision changes, weakness. NIH stroke scale 0 Physical exam benign Likely viral illness. Unlikely retropharyngeal abscess, peritonsillar abscess, epiglottitis, threat to airway. Will rule out flu, COVID, RSV. Unlikely pneumonia PE, ACS. No signs of acute respiratory distress. Plan at this time viral testing Reevaluation(s) Reevaluation #1: Flu, COVID, RSV negative. Strep negative. Child did test positive for influenza. Patient likely has influenza however not testing positive yet. Educated patient on diagnosis and treatment plan, answered all question, patient verbalizes understanding. At this time patient will be discharged home, advised to return with new or worsening symptoms. Educated on worrisome signs and symptoms and when to return. At this time I feel comfortable discharge home. Time: 13:12 Medical Decision Making Medical Decision Making [facility] Narrative: 33 year-old female history of biliary colic, cholecystitis, acute blood loss anemia presenting to the emergency department with fatigue, malaise, myalgias, sore throat, coughing, sneezing, diffuse headache without visual disturbances, dizziness or trauma all of which started yesterday. Family at home sick with similar symptoms. Denies chest pain, shortness of breath, nausea, vomiting, diarrhea, abdominal pain, vision changes, weakness. NIH stroke scale 0 Physical exam with erythema to posterior pharynx and right tonsil slightly more enlarged than left. No signs of abscess uvula midline. Speaking in full sentences controlling secretions well. Likely viral illness. Unlikely retropharyngeal abscess, peritonsillar abscess, epiglottitis, threat to airway. Will rule out flu, COVID, RSV. Unlikely pneumonia PE, ACS. No signs of acute respiratory distress. Headache likely secondary to viral illness. Unlikely intracranial hemorrhage, stroke, posterior stroke, encephalitis or meningitis Plan at this time viral testing Differential Diagnosis Differential Diagnoses: The differential diagnosis associated with the presen tation includes Likely viral illness. Unlikely retropharyngeal abscess, peritonsillar abscess, epiglottitis, threat to airway. Will rule out flu, COVID, RSV. Unlikely pneumonia PE, ACS. No signs of acute respiratory distress. Headache likely secondary to viral illness. Unlikely intracranial hemorrhage, stroke, posterior stroke, encephalitis or meningitis Admission/Observation Consideration of admission/observation: Escalation of care including admission/observation considered No indication Lab Data [facility] Lab Attestation statement: I reviewed the patient's lab results. Labs: Lab Results 10/10/23 Range/Units 11:56 Influenza Type A (PCR) NEGATIVE (Negative) Influenza Type B (PCR) NEGATIVE (Negative) RSV RNA Qual (PCR) NEGATIVE (Negative) SARS-CoV-2 RNA (RT-PCR) NEGATIVE (Negative) S. pyogenes GrpA JENIFER Negative (Negative) External Record Review External record reviewed: Inpatient record, Office record, Outpatient record, Prior outpatient labs, Prior outpatient radiology, Primary care record and Outside ED record Prescription Management I considered prescription management with: Other (Obesity) Critical Care Time Critical Care Time Critical Care Time: No Discharge Plan Discharge Clinical Impression: Viral illness Patient Disposition: Home, Self-Care Instructions: Viral Syndrome (ED) Additional Instructions: Take your medications as prescribed. If you were prescribed antibiotics today, it is important that you take your medication to their entirety, do not skip any doses, do not finish them early. Follow-up with your primary care provider this week. Return to the emergency department with new or worsening symptoms. In case of emergency call 911 Prescriptions: No Action famotidine 20 mg tablet 1 tab PO BID albuterol sulfate 90 mcg/actuation HFA aerosol inhaler inhalation budesonide-formoterol [Symbicort] 80-4.5 mcg/actuation HFA aerosol inhaler 2 puff inhalation Referrals: Mirela Rodriguez MD [Primary Care Provider] - 2 days Stand Alone Forms: Work/School Release
[2023-10-10 12:14] LABS: IDNOW Serial# 58CA691E
[2023-10-10 12:15] LABS: Strep A Nucleic Acid Negative (Negative)
[2023-10-10 13:00] LABS: Influenza A PCR NEGATIVE (Negative); Influenza B PCR NEGATIVE (Negative); Resp Syncy Virus RNA Qual PCR NEGATIVE (Negative); SARS COV2 PCR INHOUSE NEGATIVE (Negative)
[2023-10-10 13:26] VITALS: BP 110/52; PULSE 83; RESP 18; TEMP 37.2; O2SAT 95
[2023-10-10 13:36] VITALS: BP 110/52; PULSE 83; RESP 18; TEMP 37.2; O2SAT 95
== END 2023-10-10 13:37 | disposition home or self-care (01) ==
PROVIDERS: Physician Assistant; Emergency Provider Student in an Organized Health Care Education/Training Program; PCP Internal Medicine
DX: B34.9 Viral infection, unspecified (principal); J45.909 Unspecified asthma, uncomplicated; Z03.818 Encounter for observation for suspected exposure to other biological agents ruled out
CPT/HCPCS: 0241U; 87651; 99282; 99283

== ENCOUNTER 2023-11-17 12:13 | Outpatient (REF) | payer OTHER, MEDICAID, SELFPAY ==
--- NOTE | 2023-11-13 14:27 | HO.ANESPROP2 ---
HPI - Anesthesia Eval Consult details Narrative: 33yo F for Right Excision Epidermal Cyst Ear PMFSH Active Problems Active Problems: All Active Problems Epidermal inclusion cyst (Acute) Acute blood loss anemia (Acute) Cholecystitis, acute with cholelithiasis (Acute) Elevated LFTs (Acute) Biliary colic (Acute) Past Medical History Medical History Asthma Family History Family History Father Cancer of unknown origin Family history of problems with anesthesia: No Surgical History Surgical History Status post laparoscopic cholecystectomy History of Problems with Anesthesia: No Social History Social History Household Members: Family Housing: Apartment Do you presently have visiting nurse or other home services: No Alcohol intake: current Alcohol intake frequency: holidays/special occasions only Patient Tobacco Use Status: Never used Tobacco Substance Use Type: Marijuana service: No Current occupational status: unemployed Meds Allergies Allergy/AdvReac Type Severity Reaction Status Date / Time No Known Allergies Allergy Verified 04/09/21 10:31 [No Known Allergies*] Home Medications ?Medication ?Instructions ?Recorded ?Confirmed ?Last Taken ?Type famotidine 20 mg tablet 1 tab PO BID 03/27/21 02/24/23 03/26/21 History budesonide-formoterol HFA 80 2 puff inhalation 02/24/23 02/24/23 Unknown History mcg-4.5 mcg/actuation aerosol inhaler (Symbicort) albuterol sulfate 90 mcg/actuation inhalation 09/03/23 Unknown History aerosol inhaler Assessment and Plan Assessment Anesthesia Assessment: Chart Reviewed Final Anesthetic Review Family History of Problems with Anesthesia: No History of Problems with Anesthesia: No
[2023-11-17 12:16] VITALS: BP 115/67; PULSE 87; RESP 19; TEMP 36.4; O2SAT 96; BMI 44.3
--- NOTE | 2023-11-17 12:46 | P.OP_ITS ---
Operative Note Operative Note Date of Service: 11/17/23 Narrative: Preoperative diagnosis: Epidermal inclusion cyst right ear Postoperative diagnosis: Varicosity right ear Procedure: Excision varicosity right ear Surgeon: Kirk Farfan MD Industrial Chemistry Teacher: None Anesthesia: Lidocaine 1% plain Indications for procedure: 33-year-old female patient presenting with a persistent cystic lesion of the right ear just above the earlobe measuring 1 cm in diameter. Operative findings: Varicosity measuring 1 cm. Specimen: Varicosity right ear Estimated blood loss: Less than 1 mL Complications: None Procedure details: Patient was brought to the minor surgery suite and placed in a supine position. The site of surgery was confirmed by the patient in the right ear. After assuring informed consent the skin was prepped with Betadine and draped in a sterile fashion. Local anesthesia was then infiltrated circumferentially around the palpable lesion. An elliptical incision oriented transversely was then created carried out through subcutaneous tissue. Combination of sharp and blunt dissection was used to dissect the obvious varicosity from the surrounding subcutaneous tissue. This was then ligated with a 4-0 Polysorb suture. The lesion was excised and sent to pathology for further examination. After assuring adequate hemostasis the skin was closed using interrupted 5 0 nylon suture. Sterile dressings consisting of a 2 x 2 gauze and paper tape were then applied. The patient tolerated the procedure well. She was discharged home in stable condition.
== END 2023-11-17 12:14 | disposition home or self-care (01) ==
LOC: HO.MS 12:13
PROVIDERS: PCP Internal Medicine; Visit Provider Surgery
PROC: (CPT 11441; principal; 2023-11-17 12:30)
DX: D18.01 Hemangioma of skin and subcutaneous tissue (principal); L72.0 Epidermal cyst
CPT/HCPCS: 11441; 88304; 88305; 88341; 88342

== ENCOUNTER → 2023-11-17 12:13 | Outpatient (BNV) | payer OTHER, MEDICAID, SELFPAY | PROVIDERS: PCP Internal Medicine; Visit Provider Surgery | DX: L72.0 Epidermal cyst (principal) | CPT/HCPCS: 11441 ==

== ENCOUNTER 2023-11-27 08:59 | Outpatient (AMB) | payer OTHER, MEDICAID, SELFPAY ==
--- NOTE | 2023-11-27 09:10 | MHC.OFFVIS ---
Vital Signs 11/27/23 09:20 Height 5 ft 3 in Weight 251 lb BMI 44.5 BP 121/60 Blood Pressure Location Lt brachial Position Sitting Pulse 83 Intake Visit Reasons: S/P excision epidermal cyst Rt ear Intake Note: Patient is seen in office for post op assessment post excision of epidermal cyst of the ear. Pt c/o: denies any concerns Cut Off Saw Operator Required: No Accompanied by: Self / Same As Patient Allergies No Known Allergies [No Known Allergies*] Allergy (Verified 11/27/23 09:21) HPI Comments Details: 33-year-old female returning 1 week following excision of a lesion of the right ear. Pathology revealed a benign glomangioma, which was negative for malignancy. She tolerated the procedure well and returns today for suture removal. [facility] Medical History Asthma Surgical History Status post laparoscopic cholecystectomy Family History Father Cancer of unknown origin Social History Household Members: Family Housing: Apartment Do you presently have visiting nurse or other home services: No Alcohol intake: current Alcohol intake frequency: holidays/special occasions only Patient Tobacco Use Status: Never used Tobacco Substance Use Type: Marijuana service: No Current occupational status: unemployed Physical Exam Vital Signs: Last Vital Signs Pulse 83 11/27/23 09:20 BP 121/60 11/27/23 09:20 BMI result Body Mass Index 44.5 HEENT Outer ear/TM images: 1. Incision right ear, clean, dry, and intact. No evidence of infection. Assessment & Plan Assessment & Plan (1) Glomangioma: Code(s): D18.00 - Hemangioma unspecified site Category: Medical Plan 33-year-old female patient status post excision of a right ear hemangioma. She tolerated the procedure well and her wounds are healing nicely. She should follow up as needed. Coding Level of Care Code Global (28639) Diagnoses Glomangioma D18.00
[2023-11-27 09:20] VITALS: BP 121/60; PULSE 83; BMI 44.5
== END 2023-11-27 09:24 | disposition home or self-care (01) ==
PROVIDERS: PCP Internal Medicine; Visit Provider Surgery
DX: D18.00 Hemangioma unspecified site (principal)
CPT/HCPCS: 99024

== ENCOUNTER → 2023-11-27 08:59 | Outpatient (BNVA) | payer OTHER, MEDICAID, SELFPAY | PROVIDERS: PCP Internal Medicine; Visit Provider Surgery ==

== ENCOUNTER 2023-12-07 09:24 | Emergency (ER) | payer OTHER, MEDICAID, SELFPAY ==
[2023-12-07 09:35] VITALS: BP 113/57; PULSE 83; RESP 16; TEMP 36.2; O2SAT 94; BMI 44.3
[2023-12-07 10:00] VITALS: BP 115/72; PULSE 81; TEMP 36.2; O2SAT 96
--- NOTE | 2023-12-07 10:52 | ED.SKABFB ---
HPI - Skin/Abscess/Foreign Bdy General Chief complaint: Skin/Abscess/Foreign Body Stated complaint: Abscess Time Seen by Provider: 12/07/23 10:46 Source: patient, RN notes reviewed and old records reviewed Mode of arrival: ambulatory History of Present Illness ED Provider: Joanne Leslie PA-C HPI narrative: 33-year-old female with past medical history of anemia presenting to the ED complaining of painful bump on chest x few days. Reports chronic lump to area times months however squeezed over the past few days with some pus/blood expressed. Denies fever/chills Related Data Home Medications ?Medication ?Instructions ?Recorded ?Confirmed famotidine 20 mg tablet 1 tab PO BID 03/27/21 02/24/23 budesonide-formoterol HFA 80 2 puff inhalation 02/24/23 02/24/23 mcg-4.5 mcg/actuation aerosol inhaler (Symbicort) albuterol sulfate 90 mcg/actuation inhalation 09/03/23 aerosol inhaler Previous Rx's ?Medication ?Instructions ?Recorded cephalexin 500 mg capsule 500 mg PO QID 7 days #28 caps 12/07/23 doxycycline hyclate 100 mg tablet 100 mg PO BID 7 days #14 tabs 12/07/23 Allergies Allergy/AdvReac Type Severity Reaction Status Date / Time No Known Allergies Allergy Verified 12/07/23 09:36 [No Known Allergies*] Review of Systems Review of Systems: Constitutional: No Fever, No Chills ENT/Mouth: No Ear Pain, No Nasal Congestion, No sore throat, No Rhinorrhea, No Swallowing Difficulty Cardiovascular: No Chest Pain, No SOB Respiratory: No Cough Gastrointestinal: No Nausea, No Vomiting, No Diarrhea, No Constipation, No Abdominal pain Musculoskeletal: No joint pain Skin: +Skin Lesions, No rash Neuro: No Weakness Yes all other systems are reviewed and are negative Constitutional: Constitutional: Reports as per [facility] Past Medical History Attestation statement: The following information was validated with the patient. Source: old records reviewed Medical History Asthma Surgical History Status post laparoscopic cholecystectomy Family History Family History Father Cancer of unknown origin Social History Social History Household Members: Family Housing: Apartment Do you presently have visiting nurse or other home services: No Alcohol intake: current Alcohol intake frequency: holidays/special occasions only Patient Tobacco Use Status: Never used Tobacco Substance Use Type: Marijuana Advance Directives: No Advance Directives Information Provided: Yes service: No Current occupational status: unemployed Physical Exam Vital Signs: Vital Signs: Last Vital Signs Temp 97.1 F 12/07/23 11:21 Pulse 81 12/07/23 11:21 Resp 16 12/07/23 11:21 BP 115/72 12/07/23 11:21 Pulse Ox 96 12/07/23 11:21 O2 Del Method Room Air 12/07/23 11:21 BMI result Body Mass Index 44.3 Const: General: cooperative, healthy appearing and no acute distress Orientation/consciousness: patient oriented x3 Limitations: no limitations HEENT: Head: Yes normal to inspection and Yes atraumatic Ears: hearing grossly normal bilaterally General nose exam: Normal external nose present Face and sinus: Yes normal facial exam Eyes: General: appearance normal, both eyes and all related structures EOM: EOMs intact bilaterally Neck: Neck: Yes normal visual inspection and Yes no meningeal signs Resp: Effort & Inspection: normal respiratory effort and no respiratory distress Cardio: Rate: regular rate Skin: Other: + erythematous indurated cyst to anterior chest wall. No pointing, fluctuance or streaking Rashes: no rashes Neuro: General: patient oriented x3, tone normal and no meningeal signs Cranial nerves: Yes CN's II-XII intact bilaterally Gait exam (Neuro): Normal gait present Extrem: General: Yes normal to inspection Medical Decision Making Medical Decision Making MDM Narrative: 33-year-old female with past medical history of anemia presenting to the ED complaining of painful bump on chest x few days. On exam vital signs stable, NAD, nontoxic appearing, physical exam as noted above with indurated cyst/abscess to anterior chest wall with overlying erythema. No fluctuance. Concern for infected cyst/indurated abscess. No indication for I & D at this time Plan: Warm compresses, p.o. antibiotics, dermatology follow-up Please refer to course for remaining clinical decision making, interpretation of labs/imaging results, and discussions with consultants and/or family members. Results discussed with patient including worrisome signs and symptoms and strict return precautions, and when to return to the emergency department. They verbalized understanding and feel safe for discharge at this time. Differential Diagnosis Differential Diagnoses: The differential diagnosis associated with the presentation includes As above External Record Review External record reviewed: Inpatient record, Office record, Outpatient record, Prior outpatient labs, Prior outpatient radiology, Primary care record and Outside ED record Tests considered The following testing was considered but not selected: As above Prescription Management I considered prescription management with: Antibiotic Chronic Conditions Patient?s care impacted by: Other Discharge Plan Discharge Clinical Impression: Abscess Patient Disposition: Home, Self-Care Instructions: Abscess (ED) Additional Instructions: Doxycycline and Keflex are antibiotics please take as prescribed Apply warm compresses Call Dermatology for close follow-up If turns to alaniz return to the ED for proper drainage Prescriptions: New cephalexin 500 mg capsule 500 mg PO QID 7 Days Qty: 28 0RF doxycycline hyclate 100 mg tablet 100 mg PO BID 7 Days Qty: 14 0RF No Action famotidine 20 mg tablet 1 tab PO BID albuterol sulfate 90 mcg/actuation HFA aerosol inhaler inhalation budesonide-formoterol [Symbicort] 80-4.5 mcg/actuation HFA aerosol inhaler 2 puff inhalation Referrals: [facility] [Outside] Interventions: ED Discharge Assessment Last Done: 12/07/23 11:21 Discharge Date/Time: 12/07/23 11:21 Print Language: Croatian
--- NOTE | 2023-12-07 10:58 | PC.NURSE ---
PT PRESENTS WITH A SMALL NON RED ABSCESS ON HER ACW. SHE WAS SEEN BY THE [facility] AND MADE AWARE AND AGREES TO ED CARE AND DISCHARGE PLAN
[2023-12-07 11:21] VITALS: BP 115/72; PULSE 81; RESP 16; TEMP 36.2; O2SAT 96
== END 2023-12-07 11:21 | disposition home or self-care (01) ==
PROVIDERS: Emergency Provider Student in an Organized Health Care Education/Training Program; PCP Internal Medicine
DX: L02.213 Cutaneous abscess of chest wall (principal)
CPT/HCPCS: 99283

== ENCOUNTER 2023-12-21 19:30 | Outpatient (REF) | payer OTHER, MEDICAID, SELFPAY ==
[2023-12-22 08:44] LABS: Bacterial Vaginosis PCR POSITIVE (Negative); Candida Group PCR NOT DETECTED (Not Detect); Candida glab krusei PCR NOT DETECTED (Not Detect); Trichomonas vaginalis PCR NOT DETECTED (Not Detect)
[2023-12-25 03:49] LABS: HPV mRNA E6/E7 rflx Not Detected (Not Detected)
== END 2023-12-21 19:31 | disposition home or self-care (01) ==
LOC: HO.HHCLNP 19:30
PROVIDERS: Visit Provider Advanced Practice Midwife
DX: N89.8 Other specified noninflammatory disorders of vagina (principal); Z12.4 Encounter for screening for malignant neoplasm of cervix
CPT/HCPCS: 0352U; 87624; 88142

== ENCOUNTER 2023-12-22 09:11 | Outpatient (REF) | payer OTHER, MEDICAID, SELFPAY | END 2023-12-22 09:12 | disposition home or self-care (01) | LOC: HO.LNP 09:11 | PROVIDERS: PCP Internal Medicine; Visit Provider Surgery | DX: L02.91 Cutaneous abscess, unspecified (principal) | CPT/HCPCS: 10060; 87070; 87205 ==

== ENCOUNTER 2023-12-22 09:11 | Outpatient (AMB) | payer OTHER, MEDICAID, SELFPAY ==
--- NOTE | 2023-12-22 09:28 | A.OFFVIS_ITS ---
Vital Signs 3 12/22/23 09:35 Height 5 ft 3 in Weight 255 lb BMI 45.2 BP 123/59 L Blood Pressure Location Rt brachial Position Sitting Pulse 77 Intake Visit Reasons: abscess of the chest, ER follow up Intake Note: This patient [place] [facility] [place] for abscess of the chest. Patient c/o; reports completed one round of abx for x10 days but the abscess is still present. 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 She previously underwent evaluation in the emergency department on 12/07/2023 however no incision and drainage was performed. Patient was found to have more of a phlegmon therefore she was placed on Keflex and doxycycline for 10 days. She tolerated this well however returns today approximately 2 weeks later with continued swelling and discharge suggestive of a persistent abscess. She denies any fever or chills. She is currently off antibiotics. [facility] Medical History Asthma Surgical History Status post laparoscopic cholecystectomy Family History Father Cancer of unknown origin Social History Household Members: Family Housing: Apartment Do you presently have visiting nurse or other home services: No Alcohol intake: current Alcohol intake frequency: holidays/special occasions only Patient Tobacco Use Status: Never used Tobacco Substance Use Type: Marijuana service: No Current occupational status: unemployed Review of Systems Const All systems reviewed & are unremarkable except as noted in HPI and below Physical Exam Vital Signs: Last Vital Signs Pulse 77 12/22/23 09:35 BP 123/59 L 12/22/23 09:35 BMI result Body Mass Index 45.2 Const General: no acute distress Nutritional Appearance: well nourished Orientation/consciousness: patient oriented x3 Chest Chest/axillae images: 2 1. Site of abscess left chest wall, 2 cm diameter, fluctuant to palpation Resp Effort & Inspection: normal respiratory effort, no audible wheezes, no cough and no respiratory distress GI Inspection: Yes normal to inspection Skin General skin exam: no rashes or lesions noted Neuro General: patient oriented x3 Extrem General: Yes no clubbing, cyanosis or edema Office Procedures I&D Drain Details: Preoperative diagnosis: Abscess left chest wall Postoperative diagnosis: Same Procedure: Incision and drainage abscess left chest wall Surgeon: Kirk Farfan MD Analytic Manager: None Anesthesia: Lidocaine 1% with epinephrine Indications for procedure: 33-year-old female patient with a recent visit to the emergency department found to have an abscess in the right chest wall. She presents today for possible incision and drainage. Operative findings: Infected sebaceous cyst abscess left chest wall 2 cm diameter Specimen: Wound culture Estimated blood loss: Less than 2 mL Complications: None Procedure details: Patient was placed in a supine position. The site of surgery was confirmed by the patient in the left chest wall. After assuring informed consent the skin was prepped with Betadine and draped in a sterile fashion. Local anesthesia was infiltrated around the lesion. An incision was made with an 11 blade and a small purulence collection and sebaceous material drained. Wounds were irrigated with saline solution. Wounds were then packed with quarter-inch Nu Gauze. Dry sterile dressings were then applied. The patient tolerated the procedure well. She was discharged to home in stable condition. 36209-Dorldzxc of Skin Abscess, simple All charges added?: Procedure code (CPT) selection complete Assessment & Plan Assessment & Plan (1) Abscess: Code(s): L02.91 - Cutaneous abscess, unspecified Category: Medical Plan 33-year-old female patient returning with a new abscess of the left chest wall. This persisted despite being on 2 antibiotics from the emergency department. Incision and drainage was performed today with a small purulence collection being drained. Was instructed on local wound care and will return in 1 week for wound check. Orders: Orders 2 Routine Culture w Gram Stain Today L02.91 - Cutaneous abscess, unspecified Coding Level of Care Code Est Pt Level 3 (20791) Diagnoses Abscess L02.91 CPT Codes I&D Drain - Drain 1: 12566-Hqorpjka of Skin Abscess, simple ([id number])
[2023-12-22 09:35] VITALS: BP 123/59; PULSE 77; BMI 45.2
== END 2023-12-22 09:51 | disposition home or self-care (01) ==
PROVIDERS: PCP Internal Medicine; Visit Provider Surgery
DX: L02.91 Cutaneous abscess, unspecified (principal); L72.3 Sebaceous cyst
CPT/HCPCS: 10060; 99213

== ENCOUNTER 2023-12-31 14:45 | Outpatient (AMB) | payer OTHER, MEDICAID, SELFPAY ==
--- NOTE | 2023-12-31 14:55 | MHC.OFFVIS ---
Vital Signs 12/31/23 15:03 Height 5 ft 3 in Weight 254 lb BMI 45.0 BP 114/64 Blood Pressure Location Lt brachial Position Sitting Pulse 82 Intake Visit Reasons: 1wk lt chest I&Dabscess Intake Note: Patient is seen in office for one week follow up visit, post I&D abscess of the left chest. Pt c/o: no concerns healing as expected, all done with antbx Bleach Boiler Puller Required: No Accompanied by: Family/Other Allergies No Known Allergies [No Known Allergies*] Allergy (Verified 12/31/23 15:03) Medication List - Last Reconciled 12/31/23 by Kirk Farfan MD albuterol sulfate 90 mcg/actuation inhalation budesonide-formoterol 80-4.5 mcg/actuation (Symbicort) 2 puffs inhalation famotidine 1 tab PO BID HPI Comments Details: Patient returns 1 week following incision and drainage of an abscess of the left chest wall. She reports removing the packing as recommended and is currently applying a sterile bandage daily. There has been minimal drainage from the wound. She feels much improved with no further pain. [facility] Medical History Asthma Surgical History Status post laparoscopic cholecystectomy Family History Father Cancer of unknown origin Social History Household Members: Family Housing: Apartment Do you presently have visiting nurse or other home services: No Alcohol intake: current Alcohol intake frequency: holidays/special occasions only Patient Tobacco Use Status: Never used Tobacco Substance Use Type: Marijuana service: No Current occupational status: unemployed Physical Exam Const General: no acute distress Chest Other: Incision and drainage site is clean and open slightly. A small amount of bloody discharge is appreciated. No residual infection is identified. Assessment & Plan Assessment & Plan (1) Epidermal inclusion cyst: Comment: Right ear lobe Code(s): L72.0 - Epidermal cyst Category: Medical Plan 33-year-old female status post incision and drainage of an epidermal cyst abscess. The infection has resolved and a small opening remains. She should continue to apply dressing until completely dry. She should follow up as needed. Coding Level of Care Code Global (71058) Diagnoses Epidermal inclusion cyst L72.0
[2023-12-31 15:03] VITALS: BP 114/64; PULSE 82; BMI 45.0
== END 2023-12-31 15:30 | disposition home or self-care (01) ==
PROVIDERS: PCP Internal Medicine; Visit Provider Surgery
DX: L72.0 Epidermal cyst (principal)
CPT/HCPCS: 99024

== ENCOUNTER → 2023-12-31 14:45 | Outpatient (BNVA) | payer OTHER, MEDICAID, SELFPAY | PROVIDERS: PCP Internal Medicine; Visit Provider Surgery | DX: L02.91 Cutaneous abscess, unspecified (principal) ==

== ENCOUNTER 2024-01-12 17:32 | Outpatient (REF) | payer OTHER, MEDICAID, SELFPAY ==
[2024-01-13 08:51] LABS: Bacterial Vaginosis PCR POSITIVE (Negative); Candida Group PCR NOT DETECTED (Not Detect); Candida glab krusei PCR NOT DETECTED (Not Detect); Trichomonas vaginalis PCR NOT DETECTED (Not Detect)
== END 2024-01-12 17:33 | disposition home or self-care (01) ==
LOC: HO.HHCLNP 17:32
PROVIDERS: Visit Provider Advanced Practice Midwife
DX: N89.8 Other specified noninflammatory disorders of vagina (principal)
CPT/HCPCS: 0352U

== ENCOUNTER 2024-08-24 02:44 | Emergency (ER) | payer OTHER, MEDICAID, SELFPAY ==
[2024-08-24 02:45] VITALS: BP 132/86; BP 136/68; PULSE 79; PULSE 94; RESP 20; TEMP 36.6; O2SAT 100; O2SAT 99; BMI 48.3
--- OUTSIDE RECORDS SUMMARY | 2024-08-24 03:08 | XMS_ITS | Encounter Summary ---
Author Organization [employer] Address [address] [place] [address] Care Team Providers Care Veterinary Technologist Name Role Phone Mirela Rodriguez MD Primary Care Provider + Reason for Visit * Reason Onset Date Comments October08/10/2024 Encounter Details Date Type Department Care Team ([facility] st Contact Info) Description 08/10/2024 Telephone [facility] [address] [place] [address] Mirela Rodriguez MD [address] [place] [address] October recall Social History Tobacco Use Types Packs/Day Years Used Date Smoking Tobacco: Never Smokeless Tobacco: Never Alcohol Use Standard Drinks/Week Comments Not Currently 0 (1 standard drink = 0.6 oz pur e alcohol) Depression Answer Date Recorded Patient Health Questionnaire-9 Score 8 02/02/2023 Housing Stability Answer Date Recorded What is your housing situation today? I have miesha toussaint 04/27/[address] you li ve. Do you have problems with any of the following? None of the above 04/27/2023 Food Insecurity Answer Date Recorded Within the past 12 months, y ou worried that your food would run out before you got money to buy more: Never True 04/27/2023 Within the past 12 months,th e food you bought just didn't last and you didn't have enough money to get more: Never True Transportation Answer Date Recorded In the past 12 months, has l ack of transportation kept you from medical appts, meetings, work or from getting things needed for daily living? No 04/27/2023 Utilities Answer Date Recorded In the past 12 months, has t he electric, gas, oil or water company threatened to shut off services in your home? No 04/27/2023 Depression Answer Date Recorded Patient Health Questionnaire-2 Score 1 02/02/2023 Comments No Sex and Gender Information Value Date Recorded Sex Assigned at Female 05/12/2022 10:30 AM EDT Legal Sex Female 10:30 AM EDT Gender Identity Choose not to disclose 10:30 AM EDT Sexual Orientation Choose not to disclose 2021 10:30 AM EDT documented as of this encounter Miscellaneous Notes * Telephone Encounter - Jennifer Rush MA - 08/10/2024 3:23 PM EST Tc to pt to schedule recall appt. Appt has been scheduled for 10/05/24 at 3:00 pm. documented in this encounter Plan of Treatment Upcoming Encounters Date Type Department Care Team (Late st Contact Info) Description 10/05/2024 3:00 PM EDT Office Visit [facility] [address] [place] [address] Mirela Rodriguez MD [address] [place] [address] documented as of this encounter Visit Diagnoses Not on filedocumented in this encounter Additional Health Concerns Assessment Noted Time PHQ-9 Depression Total Score: 8 02/03/20 23 3:52 PM EDT documented as of this encounter Care Teams Veterinary Technologist Relationship Specialty Start Date End Date Mirela Rodriguez MD [address] [place] [address] PCP - General Family Medicine 07/29/16 documented as of this encounter
--- OUTSIDE RECORDS SUMMARY | 2024-08-24 03:08 | XMS_ITS | Clinical Summary ---
Author Organization [employer] Address [address] [place] [address] Care Team Providers Care Window And Siding Craftsman Name Role Phone Mirela Rodriguez MD Primary Care Provider + Allergies No known active allergies Medications albuterol 108 (90 Base) MCG/ACT inhalerIndication s:Mild persistent asthma without complication Inhale 2 puffs every 6 (six) hours if needed for wheezing. 18 g 11 3 Active pantoprazole (ProtoNix) 40 MG EC tabletIndications :Gastroesophageal reflux disease, unspecified whether esophagitis present TAKE 1 TABLET BY MOUTH TWICE A DAY 180 tablet 1 3 Active cetirizine (ZyrTEC) 10 MG tabletIndications :Viral URI TAKE 1 TABLET BY MOUTH EVERY DAY IN THE MORNING 90 tablet 3 Active hydrocortisone 1 % ointment Apply to affected area twice daily x 7d. Use sparingly 28 g 4 Active Vit-Fe Fumarate-FA ( Plus) 27-1 MG tablet One tablet by mouth daily 30 tablet 11 4 Active budesonide-formot coral (Symbicort) 80-4.5 MCG/ACT inhaler TAKE 2 PUFFS BY MOUTH TWICE A DAY IN THE MORNING AND IN THE EVENING 10.2 each 2 4 Active fluticasone (Flonase) 50 MCG/ACT nasal spray SPRAY 2 SPRAYS INTO EACH NOSTRIL IN MORNING SHAKE GENTLY/PRIME BEFORE 1ST USE&CLEAN TIP/REPLACE CAP 48 mL 4 Active Active Problems Problem Noted Date Diagnosed Date Less than 8 weeks gestation of 024 Assessment & Plan (03/30/2024 7:25 PM EDT): Has approx 5w/6d (LMP 02/18/24) Will refer to OB, she has refills for MVI Heartburn 02/02/2023 Assessment & Plan (02/02/2023 4:50 PM EDT): Most likely GERD Refer to GI as it is not improving with PPI order labs r/o H Pylori Dermoid cyst of ear, right 02/02/2023 Assessment & Plan (02/02/2023 4:50 PM EDT): refer to general surgery for resection Dietary counseling 02/02/2023 Exercise counseling 02/02/2023 COVID-19 11/28/2022 Gastroesophageal reflux disease 07/31/2016 Acute low back pain 07/31/2016 Morbid obesity 07/31/2016 Assessment & Plan (02/02/2023 4:50 PM EDT): Discussed re weight reduction options including exercise, life style modifications, diet, referral to chargeback specialist. Discussed re lower calorie intake, increase dietary fiber Pt has an upcoming appointment with dietiian next week we discussed about bariatric surgery given her BMI I gave her information [place] [facility] [place] I told her that she needs to register for informative sessions FU with me in 1 month Encounters Date Type Department Care Team Description 08/10/2024 Telephone [facility] [address] [place] [address] Mirela Rodriguez MD October05/25/2024 Telephone [facility] [address] [place] [address] Mirela Rodriguez MD Referral from Last 3 Months Social History Tobacco Use Types Packs/Day Years Used Date Smoking Tobacco: Never Smokeless Tobacco: Never Tobacco Cessation:Counseling Given: Not Answered Alcohol Use Standard Drinks/Week Comments Not Currently [...] not to disclose 2021 10:30 AM EDT Last Filed Vital Signs Vital Sign Reading Time Taken Comments Blood Pressure 119/70 01/12/2024 3:00 PM EDT Pulse 92 01/12/2024 3:00 PM EDT Temperature 37.1 ??C (98.7 ??F) 01/12/2024 3:00 PM ED T Respiratory Rate 20 01/12/2024 3:00 PM EDT Oxygen Saturation 96% 01/12/2024 3:00 PM EDT Inhaled Oxygen Concentration - - Weight 120 kg (264 lb) 03/30/2024 9:34 AM EDT Height 160 cm (5' 3 ) 12/21/2023 9:15 AM EDT Body Mass Index 46.77 12/21/2023 9:15 AM EDT Plan of Treatment Upcoming Encounters Date Type Department Care Team (Late st Contact Info) Description 10/05/2024 3:00 PM EDT Office Visit [facility] [address] [place] [address] Mirela Rodriguez MD [address] [place] [address] Health Maintenance Due Date Last Done Comments HIV Screening 1990 Alcohol/Substance Use Screening 2000 Hepatitis A Vaccines (1 of 2 - Risk 2-dose series) 2007 Pneumococcal Vaccine: Pediatrics (0 to 5 Years) and At-Risk Patients (6 to 49) Years) (1 of 2 - PCV) 2007 Hepatitis B Vaccines (2 of 3 - 19+ 3-dose series) 10/28/2016 09/30/2016 Depression Screening 02/03/2024 02/02/2023, 02/03/20 SDOH Screening 02/03/2024 02/02/2023 COVID-19 Vaccine (3 - 2023- season) 2024 04/11/2021, 03/15/2021 Family Planning (PISQ) 01/11/2025 01/12/2024 Tobacco Screening 03/30/2025 03/30/2024 DTaP/Tdap/Td Vaccines (4 - Td or Tdap) 09/30/2026 09/30/2016, 12/19/2015, 03/22/2011 Lipid Panel 04/24/2028 04/24/2023 Cervical Cancer Screening 12/20/2028 HPV/Cotest 12/20/2028 12/21/2023 Pap Smear 12/20/2028 12/21/2023 Zoster Vaccines (1 of 2) 2038 RSV Patients and Patients Aged 60 years or older (1 - 1-dose 75+ series) 2063 Hepatitis C Screening Completed 04/24/2023 Influenza Vaccine Completed 05/12/2024, , 05/04/2023, Additional history exists HIB Vaccines Aged Out No longer eligi ble based on patient's age to complete this topic HPV Vaccines Aged Out No longer eligi ble based on patient's age to complete this topic IPV Vaccines Aged Out No longer eligi ble based on patient's age to complete this topic Meningococcal Vaccine Aged Out No dayne connie eligible based on patient's age to complete this topic RSV under 20 months Aged Out No longe r eligible based on patient's age to complete this topic Rotavirus Vaccines Aged Out No longer eligible based on patient's age to complete this topic Procedures Procedure Name Priority Date/Time Associated Diagnosis Comments HPV MRNA E6/E7 REFLEX TO HPV 16, 18/45 Routine 12/21/2023 9:45 AM EDT PAP SMEAR Routine 12/21/2023 9:45 AM EDT Cervical cancer screening HEPATITIS PANEL, GENERAL Routine 04/24/2023 2:01 PM EDT Heartburn Morbid obesity (CMS/HCC) LIPID PANEL WITH REFLEX TO DIRECT LDL Routine 04/24/2023 2:01 PM EDT Morbid obesity (CMS/HCC) from Last 3 Months or Most Recently Relevant to Health Maintenance Results * HPV mRNA E6/E7 w/Reflex to HPV Genotypes 16, 18/45 (12/21/2023 9:45 AM EDT) HPV nRNA E6/E7 Not Detected Not Detected [facility] Comment:Methodology: Transcr iption-Mediated AmplificationThis assay detects E6/E7 viral messenger RNA (mRNA) from 14high-risk HPV types (16,18,31,33,35,39,45,51,52,56,58,59,66,68).Cervical sources are required for HPV testing.If a vaginal source from a patient who has had atotal hysterectomy with removal of cervix wassubmitted, please contact the testing laboratoryfor alternative testing options.For additional information, please refer tohttp://education.Anturis/faq/MUU681l1(This link if provided for information/educational purposes only.)THIS TEST WAS PERFORMED AT:[employer] [place] [phone] QUIGLEY MD HPV mRNA E6/E7 [facility] HPV 16 RNA [facility] HPV 18/45 RNA [facility] 12/21/2023 9:45 AM EDT 12/23/2023 12:34 PM EDT us Joshua Chowdhury [facility] CYTOLOGY ORDERABLES F inal Result [facility] [address] [place] [address] [phone] * Pap Smear (12/21/2023 9:45 AM EDT) Swab Cervix uteri structure / Unknown 12/21/2023 9:45 AM EDT 12/22/2023 6:15 AM EDT Narrative [facility] - 01/10/2024 3:41 PM EDT ----- ------- Name: Sierra Boyce ? Age/Sex: 33/F ? : 1990 Unit#: [id number] ?? Attend Dr: JOSHUA CHOWDHURY [facility] ?Re12/21/23 ?Status: DEP REF ? Location: [facility] ? Disch: ? ----- ------- SPEC : [id number] ?RECD: 12/22/23-614 ? STATUS: ??SOUT ? REQ NUM: [id number] ? NHAN: 12/21/23 ? SUBM DR: JOSHUA CHOWDHURY [facility] ? ENTERED: ??12/22/23 ?SP TYPE: Pap Smr ?OTHR DR: ? ORDERED: ??Pap Smear ? Interpretation ?? Satisfactory for evaluation. ?? No endocervical cells seen. ?? Negative for intraepithelial lesion or malignancy. ?? Mild inflammation. ? HPV mRNA E6/E7: ?NOT DETECTED ? This assay detects E6/E7 viral messenger RNA (mRNA) from 14 high-risk HPV types (16, 18, ?? 31, 33, 35, 39, 45, 51, 52, 56, 58, 59, 66, 68) ? HPV testing performed by [facility], [place], [place]. ??See reference laboratory ?? portion of the EMR for entire report. ?Clinical Information LMP:Unk Previous PAP test:Unk ? Material Received ?? ThinPrep-Vaginal/Cervical ----- ------- Signed (signature on file) Sierra Riggins 01/10/24 1541 ? ----- ------- ? END OF REPORT ? us Joshua Chowdhury [facility] CYTOLOGY ORDERABLES F inal Result [facility] [address] [place] [address] [phone] * (ABNORMAL) Lipid Panel with Reflex to Direct LDL (04/24/2023 2:01 PM EDT) Triglycerides 94 <150 mg/dL [facility] Comment:Desirable Triglyceri de: less than 150 mg/dLBorderline High Triglyceride 150-199 mg/dLHigh Triglyceride: 200-499 mg/dLVery High Triglyceride: greater than or equal to 5OO mg/dL Cholesterol 135 <200 mg/dL [facility] Comment:Desirable Cholestero l: less than 200 mg/dLBorderline High Cholesterol: 200-239 mg/dLHigh Cholesterol: greater than 239 mg/dL LDL Cholesterol Calculated 82 <100 mg/dL [facility] Comment:Desirable LDL: less than 100 mg/dLNear Optimal/Above Optimal LDL: 110- 129 mg/dLBorderline High LDL: 130-159 mg/dLHigh LDL: 160-189 mg/dLVery High LDL: greater than or equal to 190 mg/dL HDL Cholesterol 35(L) >40 mg/dL [facility] Comment:Desirable HDL: great er than 40 mg/dL Note: This HDL assay may give artificially low results in patients with liver disease. Blood 04/24/2023 2:01 PM EDT 04/24/2023 3:56 PM EDT Mirela Rodriguez MD LAB BLOOD ORDERABLES Fin al Result Performing Organization Address [facility] Co de Phone Number [facility] [address] [place] [address] [phone] * Hepatitis Panel, General (04/24/2023 2:01 PM EDT) Hepatitis A IgM Nonreactive Nonreactive [facility] Comment:IgM antibodies to HUBER V not detected; does not exclude earlyacute or recovered HAV infection. ~Hepatitis B Surface Antibody REACTIVE Nonreactive [facility] Comment:REACTIVE: > 11.99 mI U/mL Hepatitis B Core Antibody Nonreactive Nonreactive [facility] Hepatitis C Antibody Nonreactive Nonreactive [facility] Comment:Antibodies to HCV no t detected; does not exclude early acuteHCV infection. Hepatitis B Surface Ag Negative Negative [facility] Blood 04/24/2023 2:01 PM EDT 04/24/2023 3:56 PM EDT Mirela Rodriguez MD LAB BLOOD ORDERABLES Fin al Result Performing Organization Address [facility] [[email or web address]] de Phone Number [facility] [address] [place] [address] [phone] from Last 3 Months or Most Recently Relevant to Health Maintenance Insurance [facility] , [address] [place] [address] [facility] ST[facility] Care Teams Window And Siding Craftsman Relationship Specialty Start Date End Date Mirela Rodriguez MD [address] [place] [id number] PCP - General Family Medicine 07/29/16
[2024-08-24 05:19] VITALS: BP 132/70; PULSE 73; RESP 14; TEMP 36.9; O2SAT 100
--- NOTE | 2024-08-24 05:34 | ED_ITS ---
HPI - General Adult General Chief complaint: General Medical Stated complaint: Throat burning sensation Time Seen by Provider: 08/24/24 05:34 Source: patient Mode of arrival: ambulatory Limitations: no limitations History of Present Illness ED Provider: HPI narrative: Patient is 27 weeks was lying down in noticed throat burning sensation took famotidine and drank milk and had Tums feeling much better at this time asymptomatic no patient has been taking famotidine for last 2 years for gastritis no abdominal pain normal movements no vaginal bleed Related Data Home Medications ?Medication ?Instructions ?Recorded ?Confirmed famotidine 20 mg tablet 1 tab PO BID 03/27/21 12/22/23 budesonide-formoterol HFA 80 2 puff inhalation 02/24/23 12/22/23 mcg-4.5 mcg/actuation aerosol inhaler (Symbicort) albuterol sulfate 90 mcg/actuation inhalation 09/03/23 12/31/23 aerosol inhaler Previous Rx's ?Medication ?Instructions ?Recorded sucralfate 1 gram tablet 1 g PO TID #90 tabs 08/24/24 Allergies Allergy/AdvReac Type Severity Reaction Status Date / Time No Known Allergies Allergy Verified 08/24/24 02:52 [No Known Allergies*] Review of Systems Review of Systems: Yes all other systems are reviewed and are negative PMFSH Past Medical History Medical History Asthma Surgical History Status post laparoscopic cholecystectomy Family History Family History Father Cancer of unknown origin Social History Social History Household Members: Family Housing: Apartment Do you presently have visiting nurse or other home services: No Alcohol intake: current Alcohol intake frequency: holidays/special occasions only Patient Tobacco Use Status: Never used Tobacco Smoked in Last 30 Days: No Use of substances other than those prescribed or required for medical reasons: No Substance Use Type: Marijuana Advance Directives: No Do you have a plan to hurt others: No Plan Patient : Yes service: No Current occupational status: unemployed Physical Exam ED Vital Signs: Vital Signs - 24 hr 08/24/24 02:45 08/24/24 05:19 08/24/24 06:34 Temperature 97.8 F 98.4 F 97.2 F Pulse Rate 79 73 85 Respiratory Rate 20 14 18 Blood Pressure 136/68 132/70 102/55 L Pulse Oximetry 100 100 95 Oxygen Delivery Method Room Air Room Air BMI result Body Mass Index 48.3 Appearance: Alert. Oriented X3. No acute distress. Eyes: No pallor or icterus ENT: Pharynx normal. Oral Mucosa moist Neck: Normal inspection. Neck supple. CVS: Normal heart rate and rhythm. Pulses normal. Respiratory: No respiratory distress. Equal air entry bilateral, no wheezing/rales/rhonchi Abdomen: Soft and gravid uterus. Bowel sounds are present, no mass palpable, Skin: Skin warm and dry. Normal skin color. Normal skin turgor. Extremities: No lower extremity edema. No calf tenderness Neuro: Oriented X 3. No motor deficit. Medical Decision Making Medical Decision Making MDM Narrative: Patient with gastritis no other symptoms feeling much better on arrival advised change in diet habits and start taking sucralfate before eating meals continue famotidine Discharge Plan Discharge Clinical Impression: Gastritis Patient Disposition: Home, Self-Care Instructions: Gastritis (ED) Additional Instructions: Drink plenty of fluids Avoid fried and spicy food Continue famotidine for acid reflux Sucralfate 1 tablet half an hour before meals Follow up with PCP if not better Prescriptions: New sucralfate 1 gram tablet 1 g PO TID Qty: 90 0RF No Action famotidine 20 mg tablet 1 tab PO BID albuterol sulfate 90 mcg/actuation HFA aerosol inhaler inhalation budesonide-formoterol [Symbicort] 80-4.5 mcg/actuation HFA aerosol inhaler 2 puff inhalation Interventions: ED Discharge Assessment Last Done: 08/24/24 06:34 Discharge Date/Time: 08/24/24 06:37 Print Language: Ukrainian
[2024-08-24 06:34] VITALS: BP 102/55; PULSE 85; RESP 18; TEMP 36.2; O2SAT 95
== END 2024-08-24 06:37 | disposition home or self-care (01) ==
PROVIDERS: Emergency Provider Internal Medicine; PCP Internal Medicine
DX: K29.70 Gastritis, unspecified, without bleeding (principal)
CPT/HCPCS: 99283; 99284

== ENCOUNTER 2025-01-20 10:45 | Outpatient (REF) | payer OTHER, MEDICAID, SELFPAY ==
--- NOTE | ~2025-01-20 | MR_ITS ---
EXAMINATION: MR ABDOMEN WITHOUT THEN WITH IV CONTRAST HISTORY: ? pancreatic lesion (tail of pancreas), please evaluate COMPARISON: There are no prior studies available for comparison. TECHNIQUE: Axial in and out of phase T1-weighted gradient echo, axial diffusion weighted, and axial and coronal HASTE T2 with fat saturation images were obtained through the abdomen. Subsequently, fat suppressed axial and coronal T1-weighted images were obtained after the intravenous administration of 10 mL Gadavist. FINDINGS: Liver: There is no loss of signal intensity in the liver on opposed phase imaging to suggest steatosis. There is no enhancing liver mass. The hepatic and portal veins are patent. There is no intrahepatic biliary dilatation. Gallbladder/biliary tree: The patient is status post cholecystectomy. The common bile duct is normal in caliber. No intraluminal filling defects are identified to suggest choledocholithiasis. Spleen: The spleen is unremarkable. Pancreas: There is a 2.2 cm cystic lesion of the pancreatic tail. There is a fluid/fluid level and mild wall thickening laterally. Postcontrast images demonstrate probable enhancement of the lateral wall. Neoplasm is not excluded. The pancreatic duct is normal in caliber. Adrenals: The adrenal glands are unremarkable. Kidneys: The kidneys are unremarkable. There is no hydronephrosis. Lymph nodes: There is no retroperitoneal lymphadenopathy in the upper abdomen. Fluid: There is no ascites in the upper abdomen. Visualized bowel: The visualized bowels loops are unremarkable in appearance. Visualized bones/soft tissues: There is a probable hemangioma in the T9 vertebral body. There is a moderate to large fat-containing ventral hernia. MR/MR abdomen wo/w con IMPRESSION: 2.2 cm cystic lesion of the pancreatic tail demonstrating a fluid/fluid level, mild wall thickening, and probable wall enhancement. Neoplasm is not excluded, and surgical consultation is recommended. Findings were communicated to Dr. Rodriguez by secure text message on 01/20/2025 at 12:27 PM. Electronically signed by: Nikhil Trent MD 01/20/2025 12:28 PM EDT
--- OUTSIDE RECORDS SUMMARY | 2025-01-20 11:24 | XMS_ITS | Clinical Summary ---
Author Organization [employer] Address [address] [facility] [address] [place] [address] Care Team Providers Care Forepart Reducer Name Role Phone Mirela Rodriguez MD Primary Care Provider + Allergies No known active allergies Medications pantoprazole (ProtoNix) 40 MG EC tabletIndication s:Gastroesophage al reflux disease, unspecified whether esophagitis present TAKE 1 TABLET BY MOUTH TWICE A DAY 180 tablet 1 3 Active cetirizine (ZyrTEC) 10 MG tabletIndication s:Viral URI TAKE 1 TABLET BY MOUTH EVERY DAY IN THE MORNING 90 tablet 3 Active hydrocortisone 1 % ointment Apply to affected area twice daily x 7d. Use sparingly 28 g 4 Active Vit-Fe Fumarate-FA ( Plus) 27-1 MG tablet One tablet by mouth daily 30 tablet 11 4 Active fluticasone (Flonase) 50 MCG/ACT nasal spray SPRAY 2 SPRAYS INTO EACH NOSTRIL IN MORNING SHAKE GENTLY/PRIME BEFORE 1ST USE&CLEAN TIP/REPLACE CAP 48 mL 4 Active budesonide-formo terol (Symbicort) 80-4.5 MCG/ACT inhaler TAKE 2 PUFFS BY MOUTH TWICE A DAY IN THE MORNING AND IN THE EVENING 10.2 each 3 5 Active acetaminophen (Tylenol) 325 MG tablet They 1 to 2 tablets p.o. every 6 hours as needed pain 60 tablet 5 Active hydrocortisone (Anusol-HC) 2.5 % rectal cream Insert into the rectum 2 times daily. 28 g 5 Active albuterol 108 (90 Base) MCG/ACT inhalerIndicatio ns:Mild persistent asthma without complication Inhale 2 puffs every 6 (six) hours if needed for wheezing. 18 g 11 3 12/31/19 25 Discontin ued(Thera py completed ) Active Problems Problem Noted Date Diagnosed Date Rectal bleeding 12/30/2024 Assessment & Plan (12/30/2024 3:11 PM EDT): Apparently related to hemorrhoids Avoid constipation, Increase water intake, use Senokot or MiraLAX as needed, increase raisins, prune juice, papaya, elizabeth or flaxseed powder. Use hydrocortisone rectal cream as needed rectal pain or bleeding I will follow- up in 3 months. No evidence of significant anemia, she will stop iron supplementation to avoid constipation and continue with vitamins only Pancreatic lesion 12/30/2024 Assessment & Plan (12/30/2024 3:11 PM EDT): Needs additional imaging to determine lesion, will order MRI. Patient had CCY few years ago, unclear if she will be able to have an MRI, otherwise we will refer to surgery for additional evaluation Splenomegaly 12/30/2024 Assessment & Plan (12/30/2024 3:09 PM EDT): Seen on CT scan 12/25/2024. He could be related to anemia and ., There were no other abnormalities on the spleen or liver. Will follow-up with a liver ultrasound in 6 months and decide an additional evaluation if needed. Iron deficiency anemia due to chronic blood loss 12/30/2024 Assessment & Plan (12/30/2024 3:13 PM EDT): S/p hemorrhage, last hemoglobin is improved. Continue vitamins only and discontinue iron supplementation due to increased constipation. Encourage regarding increase iron rich foods including green leafy vegetables, raisins, red meat and iron rich cereal Heartburn 02/02/2023 Assessment & Plan (02/02/2023 4:50 [...] exercise, life style modifications, diet, referral to acquisition specialist. Discussed re lower calorie intake, increase dietary fiber Pt has an upcoming appointment with dietiian next week we discussed about bariatric surgery given her BMI I gave her information to [facility] [employer] program I told her that she needs to register for informative sessions FU with me in 1 month Resolved Problems Problem Noted Date Diagnosed Date Resolved Date Less than 8 weeks gestation of 03/30/2024 12/30/2024 Assessment & Plan (03/30/2024 7:25 PM EDT): Has approx 5w/6d (LMP 02/18/24) Will refer to OB, she has refills for MVI Encounters Date Type Department Care Team Description 12/30/2024 12:00 PM EDT Office Visit [facility] [address] [place] [phone] Mirela Rodriguez MD Rectal bleeding (Primary Dx); Pancreatic lesion; Splenomegaly; Iron deficiency anemia due to chronic blood loss 12/30/2024 Travel 12/28/2024 Telephone [facility] [address] [place] [phone] Mirela Rodriguez MD CHART PREP 12/23/2024 Telephone [facility] [address] [place] [phone] Mirela Rodriguez MD NTTS from Last 3 Months Social History Tobacco Use Types Packs/Day Years Used Date Smoking Tobacco: Never Smokeless Tobacco: Never Tobacco Cessation:Counseling Given: Not Answered Alcohol Use Standard Drinks/Week Comments Not Currently 0 (1 standard drink = 0.6 oz pur e alcohol) Depression Answer Date Recorded Patient Health Questionnaire-9 Score 0 12/30/2024 Patient Health Questionnaire-9 Score 0 12/30/2024 Last PHQ-9: Questionnaire Data Not on file 0 12/30/2024 Housing Stability Answer Date Recorded What is your housing situation today? I have miesha toussaint 12/30/[address] you li ve. Do you have problems with any of the following? None of the above 12/30/2024 Food Insecurity Answer Date Recorded Within the past 12 months, y ou worried that your food would run out before you got money to buy more: Never True 12/30/2024 Within the past 12 months,th e food you bought just didn't last and you didn't have enough money to get more: Never True Transportation Answer Date Recorded In the past 12 months, has l ack of transportation kept you from medical appts, meetings, work or from getting things needed for daily living? No 12/30/2024 Utilities Answer Date Recorded In the past 12 months, has t he electric, gas, oil or water company threatened to shut off services in your home? No 12/30/2024 Depression Answer Date Recorded Patient Health Questionnaire-2 Score 0 12/30/2024 Internet Access Answer Date Recorded Internet Access Q1 No 12/30/2024 Internet Access Q2 I do not want or need it 12/12 Comments No Intention Date Recorded No desire to become (finding) 0 12/30/2024 Sex and Gender Information Value Date Recorded Sex Assigned at Female 05/12/2022 10:30 AM EDT Legal Sex Female 10:30 AM EDT Gender Identity Choose not to disclose 10:30 AM EDT Sexual Orientation Choose not to disclose 2021 10:30 AM EDT Last Filed Vital Signs Vital Sign Reading Time Taken Comments Blood Pressure 112/72 12/30/2024 11:55 AM EDT Pulse 80 12/30/2024 11:55 AM EDT Temperature 37.1 C (98.8 F) 12/30/2024 11:55 AM EDT Respiratory Rate 12 12/30/2024 11:55 AM EDT Oxygen Saturation 98% 10/05/2024 3:13 PM EDT Inhaled Oxygen Concentration - - Weight 118 kg (259 lb 8 oz) 12/30/2024 11:55 AM EDT Height 160 cm (5' 3 ) 12/30/2024 11:55 AM EDT Body Mass Index 45.97 12/30/2024 11:55 AM EDT Plan of Treatment Upcoming Encounters Date Type Department Care Team ([facility] st Contact Info) Description 03/15/2025 11:30 AM EDT Office Visit [facility] [address], [place] [phone] Mirela Rodriguez MD [address] [place], [place] [phone] Health Maintenance Due Date Last Done Comments HIV Screening 1990 Hepatitis A Vaccines (1 of 2 - Risk 2-dose series) 2007 Pneumococcal Vaccine: Pediatrics (0 to 5 Years) and At-Risk Patients (6 to 49) Years (1 of 2 - PCV) 2007 Hepatitis B Vaccines (2 of 3 - 19+ 3-dose series) 10/28/2016 09/30/2016 COVID-19 Vaccine ( - season) 2024 04/11/2021, 03/15/2021 Influenza Vaccine (#1) 2025 , 05/04/2023, 05/04/2023, Additional history exists Alcohol/Substance Use Screening 12/30/2025 12/30/2024 Depression Screening 12/30/2025 12/30/2024, 12/31/19 Disability Screening 12/30/2025 12/30/2024 Family Planning (PISQ) 12/30/2025 12/30/2024 SDOH Screening 12/30/2025 12/30/2024 Tobacco Screening 12/30/2025 12/30/2024 Lipid Panel 04/24/2028 04/24/2023 Cervical Cancer Screening 12/20/2028 HPV/Cotest 12/20/2028 12/21/2023 Pap Smear 12/20/2028 12/21/2023 DTaP/Tdap/Td Vaccines (5 - Td or Tdap) 09/06/2034 09/06/2024, 09/30/2016, 12/19/2015, Additional history exists Zoster Vaccines (1 of 2) 2038 RSV Patients and Patients Aged 60 years or older (1 - 1-dose 75+ series) 2063 Hepatitis C Screening Completed 04/24/2023 HIB Vaccines Aged Out No longer eligi ble based on patient's age to complete this topic HPV Vaccines Aged Out No longer eligi ble based on patient's age to complete this topic IPV Vaccines Aged Out No longer eligi ble based on patient's age to complete this topic Meningococcal B Vaccine Aged Out No l onger eligible based on patient's age to complete [...] HPV nRNA E6/E7 Not Detected Not Detected [facility] Comment:Methodology: Transcr iption-Mediated AmplificationThis assay detects E6/E7 viral messenger RNA (mRNA) from 14high-risk HPV types (16,18,31,33,35,39,45,51,52,56,58,59,66,68).Cervical sources are required for HPV testing.If a vaginal source from a patient who has had atotal hysterectomy with removal of cervix wassubmitted, please contact the testing laboratoryfor alternative testing options.For additional information, please refer [email or web address](This link if provided for information/educational purposes only.)THIS TEST WAS PERFORMED AT:[employer] [place] [phone] QUIGLEY MD HPV mRNA E6/E7 TNP [facility] HPV 16 RNA TNP [facility] HPV 18/45 RNA TNP [facility] 12/21/2023 9:45 AM EDT 12/23/2023 12:34 PM EDT Ella Chowdhury CNM LAB CYTOLOGY ORDERABLES F inal Result [facility] [address] [place] [phone] * Pap Smear (12/21/2023 9:45 AM EDT) Swab Cervix uteri structure / Unknown 12/21/2023 9:45 AM EDT 12/22/2023 6:15 AM EDT Narrative [facility] - 01/10/2024 3:41 PM EDT ----- ------- Name: Sierra Boyce Age/Sex: 33/F : 1990 Unit#: [id number] Attend Dr: ELLA CHOWDHURY CNM Re12/21/23 Status: DEP REF Location: [facility] Disch: ----- ------- SPEC : [id number] RECD: 12/22/23 STATUS: TIFFANY MOORE NUM: [id number] NHAN: 12/21/[address] [facility] [address]: ELLA CHOWDHURY [facility] ENTERED: 12/22/23 SP TYPE: Pap Smr OTHR DR: ORDERED: Pap Smear Interpretation Satisfactory for evaluation. No endocervical cells seen. Negative for intraepithelial lesion or malignancy. Mild inflammation. HPV mRNA E6/E7: NOT DETECTED This assay detects E6/E7 viral messenger RNA (mRNA) from 14 high-risk HPV types (16, 18, 31, 33, 35, 39, 45, 51, 52, 56, 58, 59, 66, 68) HPV testing performed by [employer], [place], [place]. See reference laboratory portion of the EMR for entire report. Clinical Information LMP:Unk Previous PAP test:Unk Material Received ThinPrep-Vaginal/Cervical ----- ------- Signed (signature on file) Sierra Riggins 01/10/24 1541 ----- ------- END OF REPORT us Ella Chowdhury [facility] CYTOLOGY ORDERABLES F inal Result Performing Organization Address City/[facility]/ZIP Co de Phone Number [facility] [address] [place] [phone] * (ABNORMAL) Lipid Panel with Reflex to Direct LDL (04/24/2023 2:01 PM EDT) Triglycerides 94 <150 mg/dL [facility] Comment:Desirable Triglyceri de: less than 150 mg/dLBorderline High Triglyceride 150-199 mg/dLHigh Triglyceride: 200-499 mg/dLVery High Triglyceride: greater than or equal to 5OO mg/dL Cholesterol 135 <200 mg/dL [facility] Comment:Desirable Cholestero l: less than 200 mg/dLBorderline High Cholesterol: 200-239 mg/dLHigh Cholesterol: greater than 239 mg/dL LDL Cholesterol Calculated 82 <100 mg/dL [facility] Comment:Desirable LDL: less than 100 mg/dLNear Optimal/Above Optimal LDL: 110- 129 mg/dLBorderline High LDL: 130-159 mg/dLHigh LDL: 160-189 mg/dLVery High LDL: greater than or equal to 190 mg/dL HDL Cholesterol 35(L) >40 mg/dL [facility] Comment:Desirable HDL: great er than 40 mg/dL Note: This HDL assay may give artificially low results in patients with liver disease. Blood 04/24/2023 2:01 PM EDT 04/24/2023 3:56 PM EDT us Mirela Rodriguez MD LAB BLOOD ORDERABLES Fin al Result [facility] [address] [place] [phone] * Hepatitis Panel, General (04/24/2023 2:01 PM EDT) Hepatitis A IgM Nonreactive Nonreactive [facility] Comment:IgM antibodies to HUBER V not detected; does not exclude earlyacute or recovered HAV infection. ~Hepatitis B Surface Antibody REACTIVE Nonreactive [facility] Comment:REACTIVE: > 11.99 mI U/mL Hepatitis B Core Antibody Nonreactive Nonreactive [facility] Hepatitis C Antibody Nonreactive Nonreactive [facility] Comment:Antibodies to HCV no t detected; does not exclude early acuteHCV infection. Hepatitis B Surface Ag Negative Negative [facility] Blood 04/24/2023 2:01 PM EDT 04/24/2023 3:56 PM EDT us Mirela Rodriguez MD LAB BLOOD ORDERABLES Fin al Result [facility] [address] [place] [phone] from Last 3 Months or Most Recently Relevant to Health Maintenance Insurance [facility] , [address] [place] [address] Care Teams Forepart Reducer Relationship Specialty Start Date End Date Mirela Rodriguez MD [address] [place] [phone] PCP - General Family Medicine 07/29/16
== END 2025-01-20 10:46 | disposition home or self-care (01) ==
LOC: HO.MRI 10:45
PROVIDERS: PCP Internal Medicine; Visit Provider Internal Medicine
DX: K86.9 Disease of pancreas, unspecified (principal)
CPT/HCPCS: 74183; A9585

== ENCOUNTER → 2025-01-20 10:56 | Outpatient (BNV) | payer OTHER, MEDICAID, SELFPAY | PROVIDERS: PCP Internal Medicine; Visit Provider Radiology Diagnostic Radiology | DX: K86.2 Cyst of pancreas (principal) | CPT/HCPCS: 74183 ==